=== PATIENT | female | born 1955 | race Caucasian/White ===

== ENCOUNTER 2019-01-17 01:13 | Outpatient (CLI) | payer OTHER, SELFPAY ==
[2019-01-17 07:36] LABS: Absolute Basophil Count 0.06 k/cumm (0.0-0.2); Absolute Eosinophil Count 0.32 k/cumm (0.0-0.7); Absolute Lymphocyte Count 1.66 k/cumm (1.2-3.4); Absolute Monocyte Count 0.42 k/cumm (0.11-0.7); Absolute Neutrophil Count 1.76 k/cumm (1.2-6.7); Basophils % 1.4; Eosinophils % 7.6; HCT 39.5 % (36.0-46.0); Lymphocytes % 39.3; Mean Corp. HGB Concentration 32.9 g/dL (32.0-36.0); Mean Corpuscular Hemoglobin 31.9 pg (27.0-33.0); Mean Corpuscular Volume 97.1 fL (80-95); Mean Platelet Volume 8.8 fL (8.0-11.0); Neutrophils % 41.7; Platelet Count 267 x1000/uL (130-400); RBC 4.07 m/cumm (4.00-5.20); RBC Distribution Width 13.5 % (11.7-14.6); White Blood Cell Count 4.22 k/cumm (4.4-10.8)
[2019-01-17 08:15] LABS: ALT 23 U/L (12-78); AST 22 U/L (15-37); Albumin 3.9 g/dL (3.4-5.0); Alkaline Phosphatase 55 U/L (46-116); Anion Gap 7.1 mmol/L (3-11); BUN 16 mg/dL (7-18); Bilirubin, Direct 0.11 mg/dL (0.00-0.20); Bilirubin, Total 0.4 mg/dL (0.2-1.0); CO2 29.9 mmol/L (21.0-32.0); CREATININE 0.61 mg/dL (0.55-1.02); Calcium 9.4 mg/dL (8.5-10.1); Chloride 104 mmol/L (98-107); Glucose 92 mg/dL (70-100); PHOSPHORUS 4.2 mg/dL (2.6-4.7); Potassium 3.9 mmol/L (3.5-5.1); Sodium 141 mmol/L (136-145); Total Protein 6.7 g/dL (6.4-8.2)
== END 2019-01-17 01:33 ==
PROVIDERS: PCP Family Medicine; Visit Provider Psychiatry & Neurology Neurocritical Care
DX: G70.00 Myasthenia gravis without (acute) exacerbation (principal); D15.0 Benign neoplasm of thymus; Z51.81 Encounter for therapeutic drug level monitoring; Z79.52 Long term (current) use of systemic steroids
CPT/HCPCS: 36415; 80069; 80076; 85025

== ENCOUNTER 2019-02-07 02:34 | Outpatient (CLI) | payer OTHER, SELFPAY ==
[2019-02-07 07:54] LABS: Absolute Basophil Count 0.03 k/cumm (0.0-0.2); Absolute Lymphocyte Count 1.28 k/cumm (1.2-3.4); Absolute Monocyte Count 0.31 k/cumm (0.11-0.7); Absolute Neutrophil Count 2.21 k/cumm (1.2-6.7); Basophils % 0.7; HCT 36.8 % (36.0-46.0); Lymphocytes % 31.8; Mean Corp. HGB Concentration 32.6 g/dL (32.0-36.0); Mean Corpuscular Hemoglobin 32.3 pg (27.0-33.0); Mean Corpuscular Volume 98.9 fL (80-95); Mean Platelet Volume 8.7 fL (8.0-11.0); Monocytes % 7.7; Neutrophils % 54.8; Platelet Count 267 x1000/uL (130-400); RBC 3.72 m/cumm (4.00-5.20); RBC Distribution Width 13.5 % (11.7-14.6); White Blood Cell Count 4.03 k/cumm (4.4-10.8)
[2019-02-07 09:10] LABS: ALT 34 U/L (12-78); AST 35 U/L (15-37); Alkaline Phosphatase 58 U/L (46-116); BUN 17 mg/dL (7-18); Bilirubin, Direct 0.09 mg/dL (0.00-0.20); Bilirubin, Total 0.4 mg/dL (0.2-1.0); CREATININE 0.65 mg/dL (0.55-1.02); Calcium 9.1 mg/dL (8.5-10.1); Chloride 102 mmol/L (98-107); Glucose 87 mg/dL (70-100); PHOSPHORUS 3.9 mg/dL (2.6-4.7); Potassium 3.9 mmol/L (3.5-5.1); Sodium 142 mmol/L (136-145); Total Protein 6.7 g/dL (6.4-8.2)
== END 2019-02-07 02:54 ==
PROVIDERS: PCP Family Medicine; Visit Provider Psychiatry & Neurology Neurocritical Care
DX: D15.0 Benign neoplasm of thymus (principal); G70.00 Myasthenia gravis without (acute) exacerbation; Z79.52 Long term (current) use of systemic steroids; Z51.81 Encounter for therapeutic drug level monitoring
CPT/HCPCS: 36415; 80069; 80076; 85025

== ENCOUNTER 2019-02-20 09:02 | Outpatient (CLI) | payer OTHER, SELFPAY ==
[2019-02-20 14:49] LABS: Mean Corp. HGB Concentration 32.4 g/dL (32.0-36.0); Mean Corpuscular Hemoglobin 32.4 pg (27.0-33.0); Platelet Count 260 x1000/uL (130-400); RBC Distribution Width 14.4 % (11.7-14.6); White Blood Cell Count 4.08 k/cumm (4.4-10.8)
[2019-02-20 16:45] LABS: ALT 44 U/L (12-78); AST 29 U/L (15-37); Albumin 4.2 g/dL (3.4-5.0); Alkaline Phosphatase 67 U/L (46-116); Anion Gap 10.1 mmol/L (3-11); BUN 17 mg/dL (7-18); Bilirubin, Direct 0.12 mg/dL (0.00-0.20); Bilirubin, Total 0.5 mg/dL (0.2-1.0); CO2 25.9 mmol/L (21.0-32.0); CREATININE 0.55 mg/dL (0.55-1.02); Calcium 9.2 mg/dL (8.5-10.1); Chloride 105 mmol/L (98-107); Glucose 109 mg/dL (70-100); PHOSPHORUS 3.9 mg/dL (2.6-4.7); Potassium 4.3 mmol/L (3.5-5.1); Sodium 141 mmol/L (136-145); Total Protein 6.7 g/dL (6.4-8.2)
== END 2019-02-20 09:22 ==
PROVIDERS: PCP Family Medicine; Visit Provider Psychiatry & Neurology Neurocritical Care
DX: G70.00 Myasthenia gravis without (acute) exacerbation (principal); Z79.52 Long term (current) use of systemic steroids; Z51.81 Encounter for therapeutic drug level monitoring; D51.0 Vitamin B12 deficiency anemia due to intrinsic factor deficiency
CPT/HCPCS: 36415; 80069; 80076; 85027

== ENCOUNTER 2019-03-21 02:52 | Outpatient (CLI) | payer OTHER, SELFPAY ==
[2019-03-21 07:57] LABS: Absolute Basophil Count 0.07 k/cumm (0.0-0.2); Absolute Eosinophil Count 0.12 k/cumm (0.0-0.7); Absolute Lymphocyte Count 1.51 k/cumm (1.2-3.4); Absolute Neutrophil Count 1.79 k/cumm (1.2-6.7); Basophils % 1.8; Eosinophils % 3.1; HCT 38.7 % (36.0-46.0); HGB 12.8 g/dL (12.0-15.5); Lymphocytes % 38.8; Mean Corp. HGB Concentration 33.1 g/dL (32.0-36.0); Mean Corpuscular Hemoglobin 33.6 pg (27.0-33.0); Mean Corpuscular Volume 101.6 fL (80-95); Mean Platelet Volume 9.2 fL (8.0-11.0); Monocytes % 10.3; Platelet Count 246 x1000/uL (130-400); RBC 3.81 m/cumm (4.00-5.20); White Blood Cell Count 3.89 k/cumm (4.4-10.8)
[2019-03-21 08:34] LABS: ALT 76 U/L (12-78); AST 64 U/L (15-37); Albumin 4.1 g/dL (3.4-5.0); Alkaline Phosphatase 73 U/L (46-116); Anion Gap 7.6 mmol/L (3-11); BUN 10 mg/dL (7-18); Bilirubin, Direct 0.14 mg/dL (0.00-0.20); Bilirubin, Total 0.7 mg/dL (0.2-1.0); CO2 33.4 mmol/L (21.0-32.0); CREATININE 0.57 mg/dL (0.55-1.02); Calcium 9.3 mg/dL (8.5-10.1); Chloride 104 mmol/L (98-107); Glucose 94 mg/dL (70-100); PHOSPHORUS 3.6 mg/dL (2.6-4.7); Potassium 4.3 mmol/L (3.5-5.1); Sodium 145 mmol/L (136-145); Total Protein 6.8 g/dL (6.4-8.2)
== END 2019-03-21 03:12 ==
PROVIDERS: PCP Family Medicine; Visit Provider Psychiatry & Neurology Neurocritical Care
DX: G70.00 Myasthenia gravis without (acute) exacerbation (principal); D15.0 Benign neoplasm of thymus; Z79.52 Long term (current) use of systemic steroids; Z51.81 Encounter for therapeutic drug level monitoring
CPT/HCPCS: 36415; 80069; 80076; 85025

== ENCOUNTER 2019-04-24 00:58 | Outpatient (CLI) | payer OTHER, SELFPAY ==
[2019-04-24 07:40] LABS: Absolute Basophil Count 0.03 k/cumm (0.0-0.2); Absolute Eosinophil Count 0.18 k/cumm (0.0-0.7); Absolute Lymphocyte Count 1.38 k/cumm (1.2-3.4); Absolute Monocyte Count 0.25 k/cumm (0.11-0.7); Absolute Neutrophil Count 1.94 k/cumm (1.2-6.7); Basophils % 0.8; Eosinophils % 4.8; HCT 37.4 % (36.0-46.0); HGB 12.6 g/dL (12.0-15.5); Lymphocytes % 36.5; Mean Corp. HGB Concentration 33.7 g/dL (32.0-36.0); Mean Corpuscular Hemoglobin 35.1 pg (27.0-33.0); Mean Corpuscular Volume 104.2 fL (80-95); Monocytes % 6.6; Neutrophils % 51.3; Platelet Count 269 x1000/uL (130-400); RBC 3.59 m/cumm (4.00-5.20); RBC Distribution Width 15.6 % (11.7-14.6); White Blood Cell Count 3.78 k/cumm (4.4-10.8)
[2019-04-24 10:37] LABS: ALT 56 U/L (14-59); AST 43 U/L (15-37); Albumin 3.9 g/dL (3.4-5.0); Alkaline Phosphatase 68 U/L (46-116); Anion Gap 9.3 mmol/L (3-11); BUN 13 mg/dL (7-18); Bilirubin, Total 0.6 mg/dL (0.2-1.0); CO2 31.7 mmol/L (21.0-32.0); CREATININE 0.59 mg/dL (0.55-1.02); Calcium 9.2 mg/dL (8.5-10.1); Chloride 106 mmol/L (98-107); Glucose 83 mg/dL (70-100); Potassium 4.1 mmol/L (3.5-5.1); Sodium 147 mmol/L (136-145); Total Protein 6.6 g/dL (6.4-8.2)
[2019-04-24 10:46] LABS: Bilirubin, Direct 0.09 mg/dL (0.00-0.20)
== END 2019-04-24 01:18 ==
PROVIDERS: PCP Family Medicine; Visit Provider Psychiatry & Neurology Neurocritical Care
DX: G70.00 Myasthenia gravis without (acute) exacerbation (principal); D15.0 Benign neoplasm of thymus; Z51.81 Encounter for therapeutic drug level monitoring; Z79.52 Long term (current) use of systemic steroids
CPT/HCPCS: 36415; 80069; 80076; 85025

== ENCOUNTER 2019-07-03 00:08 | Outpatient (CLI) | payer OTHER, SELFPAY ==
[2019-07-03 08:25] LABS: ALT 44 U/L (14-59); AST 32 U/L (15-37); Albumin 4.3 g/dL (3.4-5.0); Alkaline Phosphatase 56 U/L (46-116); BUN 11 mg/dL (7-18); Bilirubin, Direct 0.17 mg/dL (0.00-0.20); Bilirubin, Total 0.7 mg/dL (0.2-1.0); Calcium 9.2 mg/dL (8.5-10.1); Chloride 106 mmol/L (98-107); Glucose 80 mg/dL (70-100); PHOSPHORUS 3.8 mg/dL (2.6-4.7); Sodium 145 mmol/L (136-145); Total Protein 6.9 g/dL (6.4-8.2)
[2019-07-03 17:58] LABS: HCT 37.8 % (36.0-46.0); HGB 12.5 g/dL (12.0-15.5); Mean Corp. HGB Concentration 33.1 g/dL (32.0-36.0); Mean Corpuscular Hemoglobin 36.3 pg (27.0-33.0); Mean Corpuscular Volume 109.9 fL (80-95); Mean Platelet Volume 9.1 fL (8.0-11.0); Platelet Count 307 x1000/uL (130-400); RBC 3.44 m/cumm (4.00-5.20); RBC Distribution Width 15.6 % (11.7-14.6); White Blood Cell Count 4.76 k/cumm (4.4-10.8)
== END 2019-07-03 00:28 ==
PROVIDERS: PCP Family Medicine; Visit Provider Psychiatry & Neurology Neurocritical Care
DX: G70.00 Myasthenia gravis without (acute) exacerbation (principal); D15.0 Benign neoplasm of thymus; Z79.52 Long term (current) use of systemic steroids; Z51.81 Encounter for therapeutic drug level monitoring
CPT/HCPCS: 36415; 80069; 80076; 85027

== ENCOUNTER 2019-08-01 01:29 | Outpatient (CLI) | payer OTHER, SELFPAY ==
[2019-08-01 10:44] LABS: Absolute Basophil Count 0.03 k/cumm (0.0-0.2); Absolute Eosinophil Count 0.06 k/cumm (0.0-0.7); Absolute Lymphocyte Count 0.58 k/cumm (1.2-3.4); Absolute Monocyte Count 0.17 k/cumm (0.11-0.7); Absolute Neutrophil Count 3.49 k/cumm (1.2-6.7); Basophils % 0.7; Eosinophils % 1.4; HCT 36.9 % (36.0-46.0); HGB 12.3 g/dL (12.0-15.5); Lymphocytes % 13.4; Mean Corp. HGB Concentration 33.3 g/dL (32.0-36.0); Mean Corpuscular Hemoglobin 36.1 pg (27.0-33.0); Mean Corpuscular Volume 108.2 fL (80-95); Mean Platelet Volume 8.8 fL (8.0-11.0); Monocytes % 3.9; Neutrophils % 80.6; Platelet Count 235 x1000/uL (130-400); RBC 3.41 m/cumm (4.00-5.20); RBC Distribution Width 14.5 % (11.7-14.6); White Blood Cell Count 4.33 k/cumm (4.4-10.8)
[2019-08-01 11:32] LABS: ALT 53 U/L (14-59); AST 45 U/L (15-37); Albumin 4.3 g/dL (3.4-5.0); Alkaline Phosphatase 59 U/L (46-116); Anion Gap 7.1 mmol/L (3-11); BUN 14 mg/dL (7-18); Bilirubin, Direct 0.17 mg/dL (0.00-0.20); Bilirubin, Total 0.8 mg/dL (0.2-1.0); CO2 30.9 mmol/L (21.0-32.0); CREATININE 0.62 mg/dL (0.55-1.02); Calcium 9.2 mg/dL (8.5-10.1); Chloride 106 mmol/L (98-107); Glucose 105 mg/dL (74-106); PHOSPHORUS 3.3 mg/dL (2.6-4.7); Potassium 3.9 mmol/L (3.5-5.1); Sodium 144 mmol/L (136-145); Total Protein 6.8 g/dL (6.4-8.2)
[2019-08-01 11:48] LABS: Diff Comment RBC Morph Reviewed; Macrocytosis 3+
== END 2019-08-01 01:49 ==
PROVIDERS: PCP Family Medicine; Visit Provider Psychiatry & Neurology Neurocritical Care
DX: G70.00 Myasthenia gravis without (acute) exacerbation (principal); D15.0 Benign neoplasm of thymus; Z51.81 Encounter for therapeutic drug level monitoring; Z79.52 Long term (current) use of systemic steroids
CPT/HCPCS: 36415; 80069; 80076; 85025

== ENCOUNTER 2021-05-19 09:58 | Outpatient (CLI) | payer OTHER, SELFPAY ==
[2021-05-19 15:50] LABS: HCT 38.6 % (36.0-46.0); HGB 12.7 g/dL (11.2-15.7); MCH 33.1 pg (27.0-33.0); MCHC 32.9 % (32.0-36.0); MCV 100.5 fL (80-95); MPV 8.8 fL (8.0-11.0); Platelet Count 236 10^3/uL (130-400); RBC 3.84 10^6/uL (3.93-5.22); RDW 13.3 % (11.7-14.6); RDW-SD 49.2 fL; WBC 8.52 10^3/uL (4.4-10.8)
[2021-05-19 17:25] LABS: TSH (W/Ref FT4) 0.24 uIU/mL (0.36-3.74)
[2021-05-19 17:54] LABS: FREE T4 0.71 ng/dL (0.76-1.46)
[2021-05-19 18:40] LABS: Ferritin 95 ng/mL (8-252)
== END 2021-05-19 09:59 | disposition home or self-care (01) ==
LOC: LBO 10:04
PROVIDERS: PCP Family Medicine; Visit Provider Family Medicine
DX: R10.13 Epigastric pain (principal); K92.1 Melena; R45.0 Nervousness
CPT/HCPCS: 36415; 85027; 82728; 84439; 84443

== ENCOUNTER 2021-06-06 01:41 | Outpatient (CLI) | payer OTHER, SELFPAY ==
[2021-06-06 16:08] LABS: HCT 39.8 % (36.0-46.0); MCH 33.2 pg (27.0-33.0); MCHC 32.7 % (32.0-36.0); MCV 101.8 fL (80-95); MPV 8.9 fL (8.0-11.0); Platelet Count 227 10^3/uL (130-400); RBC 3.91 10^6/uL (3.93-5.22); RDW 13.1 % (11.7-14.6); RDW-SD 49.1 fL; WBC 6.38 10^3/uL (4.4-10.8)
[2021-06-06 17:05] LABS: FREE T4 0.78 ng/dL (0.76-1.46); TSH (W/Ref FT4) 0.42 uIU/mL (0.36-3.74)
[2021-06-06 17:34] LABS: Ferritin 61 ng/mL (8-252)
[2021-06-06 22:01] LABS: T3, Total 102 ng/dL (97-169)
[2021-06-07 14:39] LABS: Thyroglobulin Antibody 17 U/mL (<=60); Thyroperoxidase Antibody <28 U/mL (<=60)
== END 2021-06-06 01:42 | disposition home or self-care (01) ==
LOC: LBO 01:41
PROVIDERS: PCP Family Medicine; Visit Provider Family Medicine
DX: R94.6 Abnormal results of thyroid function studies (principal); K92.1 Melena
CPT/HCPCS: 36415; 85027; 82728; 84439; 84443; 84480; 86376; 86800

== ENCOUNTER 2021-08-12 02:26 | Outpatient (RCR) | payer MEDICARE, OTHER, SELFPAY ==
[2021-08-08 09:02] VITALS: BP 173/100; PULSE 97; RESP 20; TEMP 36.9; O2SAT 99
[2021-08-08] MEDS: Normal Saline Flush 10 ML SYR IVP (09:07)
[2021-08-08 09:10] VITALS: BP 149/87; PULSE 88; RESP 20; TEMP 36.9; O2SAT 99
[2021-08-08] MEDS: IMMUNE GLOBULIN 5 GM/50 ML BTL IV (09:10)
[2021-08-08 09:13] LABS: HCT 41.1 % (36.0-46.0); HGB 13.9 g/dL (11.2-15.7); MCH 33.2 pg (27.0-33.0); MCHC 33.8 % (32.0-36.0); MCV 98.1 fL (80-95); MPV 8.9 fL (8.0-11.0); Platelet Count 259 10^3/uL (130-400); RBC 4.19 10^6/uL (3.93-5.22); RDW 12.1 % (11.7-14.6); RDW-SD 43.8 fL; WBC 4.73 10^3/uL (4.4-10.8)
[2021-08-08 09:24] LABS: BUN 11 mg/dL (7-18); CREATININE 0.6 mg/dL (0.55-1.02)
[2021-08-08 09:30] VITALS: BP 151/88; PULSE 88; RESP 16; TEMP 36.8; O2SAT 99
[2021-08-08] MEDS: IMMUNE GLOBULIN 20 GM/200 ML BTL IV (09:49)
[2021-08-08 09:58] VITALS: BP 146/90; PULSE 92; RESP 20; TEMP 36.8; O2SAT 99
[2021-08-08 10:26] VITALS: BP 145/87; PULSE 84; RESP 16; TEMP 36.5; O2SAT 97
[2021-08-08 10:55] VITALS: BP 146/90; PULSE 83; RESP 16; TEMP 36.2; O2SAT 97
[2021-08-09] MEDS: Acetaminophen 500 MG TAB PO (09:00)
[2021-08-09] MEDS: IMMUNE GLOBULIN 5 GM/50 ML BTL IV (09:02)
[2021-08-09 09:05] VITALS: BP 160/85; PULSE 85; RESP 17; TEMP 36.6; O2SAT 98
[2021-08-09] MEDS: Normal Saline Flush 10 ML SYR IVP (09:14)
[2021-08-09 09:28] VITALS: BP 148/88; PULSE 87; RESP 17; TEMP 36.6; O2SAT 98
[2021-08-09 09:44] VITALS: BP 142/87; PULSE 83; RESP 17; TEMP 36.8; O2SAT 98
[2021-08-09] MEDS: IMMUNE GLOBULIN 20 GM/200 ML BTL IV (10:00)
[2021-08-09 10:15] VITALS: BP 154/88; PULSE 88; RESP 18; TEMP 36.7; O2SAT 98
[2021-08-09 10:45] VITALS: BP 151/92; PULSE 82; RESP 17; TEMP 36.5; O2SAT 98
[2021-08-10 09:10] VITALS: BP 153/93; PULSE 87; RESP 16; TEMP 36.6; O2SAT 97
[2021-08-10] MEDS: Acetaminophen 500 MG TAB PO (09:13)
[2021-08-10] MEDS: IMMUNE GLOBULIN 5 GM/50 ML BTL IV (09:14)
[2021-08-10] MEDS: Normal Saline Flush 10 ML SYR IVP (09:20)
[2021-08-10 09:24] LABS: HCT 38.3 % (36.0-46.0); HGB 12.5 g/dL (11.2-15.7); MCH 31.6 pg (27.0-33.0); MCHC 32.6 % (32.0-36.0); MPV 8.7 fL (8.0-11.0); Platelet Count 210 10^3/uL (130-400); RBC 3.95 10^6/uL (3.93-5.22); RDW 11.9 % (11.7-14.6); RDW-SD 42.8 fL; WBC 2.28 10^3/uL (4.4-10.8)
[2021-08-10 09:33] VITALS: BP 145/88; PULSE 80; RESP 16; TEMP 36.7; O2SAT 97
[2021-08-10 09:34] LABS: BUN 10 mg/dL (7-18); CREATININE 0.7 mg/dL (0.55-1.02)
[2021-08-10 09:47] VITALS: BP 133/80; PULSE 77; RESP 17; TEMP 36.8; O2SAT 97
[2021-08-10] MEDS: IMMUNE GLOBULIN 20 GM/200 ML BTL IV (09:56)
[2021-08-10 10:20] VITALS: BP 129/78; PULSE 83; RESP 17; TEMP 36.6; O2SAT 97
[2021-08-10 10:50] VITALS: BP 135/82; PULSE 83; RESP 17; TEMP 36.6; O2SAT 98
[2021-08-10] MEDS: Normal Saline 1,000 ML 999 ML IV (11:20)
[2021-08-11] MEDS: Ketorolac 15 MG/ML VIAL IV (09:01)
[2021-08-11] MEDS: Acetaminophen 500 MG TAB PO (09:01)
[2021-08-11] MEDS: IMMUNE GLOBULIN 5 GM/50 ML BTL IV (09:02)
[2021-08-11 09:10] VITALS: BP 163/95; PULSE 84; RESP 17; TEMP 36.5; O2SAT 98
[2021-08-11 09:27] VITALS: BP 129/77; PULSE 81; RESP 16; TEMP 36.6; O2SAT 98
[2021-08-11 09:40] VITALS: BP 132/78; PULSE 84; RESP 17; TEMP 36.4; O2SAT 98
[2021-08-11] MEDS: IMMUNE GLOBULIN 20 GM/200 ML BTL IV (09:44)
[2021-08-11 10:14] VITALS: BP 128/79; PULSE 73; RESP 17; TEMP 36.3; O2SAT 99
[2021-08-11 10:45] VITALS: BP 132/80; PULSE 73; RESP 16; TEMP 36.3; O2SAT 98
[2021-08-11] MEDS: Normal Saline 1,000 ML 999 ML IV (11:11)
[2021-08-12] MEDS: Acetaminophen 500 MG TAB PO (08:57)
[2021-08-12] MEDS: Normal Saline Flush 10 ML SYR IVP (08:57)
[2021-08-12 09:00] VITALS: BP 166/92; PULSE 81; RESP 16; TEMP 36.3; O2SAT 100
[2021-08-12] MEDS: Ketorolac 15 MG/ML VIAL IV (09:01)
[2021-08-12] MEDS: IMMUNE GLOBULIN 5 GM/50 ML BTL IV (09:05)
[2021-08-12 09:20] VITALS: BP 153/92; PULSE 77; RESP 17; TEMP 36.4; O2SAT 98
[2021-08-12 09:35] VITALS: BP 151/88; PULSE 75; RESP 16; TEMP 36.4; O2SAT 99
[2021-08-12] MEDS: IMMUNE GLOBULIN 20 GM/200 ML BTL IV (09:48)
[2021-08-12 10:09] VITALS: BP 158/85; PULSE 74; RESP 17; TEMP 36.5; O2SAT 99
[2021-08-12 10:39] VITALS: BP 168/92; PULSE 75; RESP 17; TEMP 36.5; O2SAT 97
[2021-08-12] MEDS: Normal Saline 1,000 ML 999 ML IV (11:07)
== END 2021-08-26 23:59 | disposition home or self-care (01) ==
LOC: INF 02:26
PROVIDERS: Psychiatry & Neurology Neurocritical Care; PCP Family Medicine; Visit Provider Internal Medicine
DX: G70.01 Myasthenia gravis with (acute) exacerbation (principal)
CPT/HCPCS: 36415; 84520; 85027; 96360; 96361; 96365; 96366; 96374; 96375; 82565; J1459; J1885

== ENCOUNTER 2021-09-20 03:44 | Outpatient (RCR) | payer MEDICARE, OTHER, SELFPAY ==
[2021-08-27 00:01] VITALS: BP 168/92; PULSE 75; RESP 17; TEMP 36.5
[2021-09-09] MEDS: Acetaminophen 500 MG TAB PO (08:59)
[2021-09-09] MEDS: Ketorolac 15 MG/ML VIAL IV (09:00)
[2021-09-09] MEDS: Normal Saline Flush 10 ML SYR IVP (09:00)
[2021-09-09 09:10] VITALS: BP 144/89; PULSE 82; RESP 20; TEMP 36.8; O2SAT 99
[2021-09-09] MEDS: IMMUNE GLOBULIN 5 GM/50 ML BTL IVPB (09:13)
[2021-09-09 09:35] VITALS: BP 124/80; PULSE 73; RESP 16; TEMP 36.9; O2SAT 98
[2021-09-09 09:50] VITALS: BP 138/81; PULSE 77; RESP 16; TEMP 37; O2SAT 97
[2021-09-09] MEDS: IMMUNE GLOBULIN 40 GM/400 ML BTL IVPB (09:50)
[2021-09-09 10:20] VITALS: BP 134/86; PULSE 82; RESP 16; TEMP 37; O2SAT 98
[2021-09-09 12:25] VITALS: BP 146/88; PULSE 82; RESP 16; TEMP 36.7; O2SAT 100
[2021-09-09] MEDS: Normal Saline 1,000 ML 1000 ML IV (12:27)
[2021-09-13 07:55] VITALS: BP 148/83; PULSE 80; RESP 17; TEMP 36.4; O2SAT 98
[2021-09-13] MEDS: Normal Saline Flush 10 ML SYR IVP (08:45)
[2021-09-13 08:57] VITALS: BP 147/88; PULSE 80; RESP 17; TEMP 36.7; O2SAT 97
[2021-09-13 09:20] VITALS: BP 139/87; PULSE 70; RESP 17; TEMP 36.7; O2SAT 98
[2021-09-13 10:20] VITALS: BP 149/94; PULSE 83; RESP 17; TEMP 36.7; O2SAT 99
[2021-09-20] MEDS: Normal Saline Flush 10 ML SYR IVP (09:43)
== END 2021-09-26 23:59 | disposition home or self-care (01) ==
LOC: INF 03:44
PROVIDERS: PCP Family Medicine; Visit Provider Internal Medicine
DX: G70.01 Myasthenia gravis with (acute) exacerbation (principal)
CPT/HCPCS: 96360; 96361; 96365; 96366; 96367; 96375; J1300; J1459; J1885

== ENCOUNTER 2021-10-04 01:42 | Outpatient (RCR) | payer MEDICARE, OTHER, SELFPAY ==
[2021-09-27 00:03] VITALS: BP 149/94; PULSE 83; RESP 17; TEMP 36.7
[2021-09-27] MEDS: Normal Saline Flush 10 ML SYR IVP (08:53)
[2021-10-04] MEDS: Normal Saline Flush 10 ML SYR IVP (08:39)
== END 2021-10-24 23:59 | disposition home or self-care (01) ==
LOC: INF 01:42
PROVIDERS: PCP Family Medicine; Visit Provider Internal Medicine
DX: G70.00 Myasthenia gravis without (acute) exacerbation (principal)
CPT/HCPCS: 96365; J1300

== ENCOUNTER 2021-10-24 21:04 | Emergency (ER) | payer MEDICARE, OTHER, SELFPAY ==
[2021-10-24 21:10] VITALS: BP 202/124; PULSE 90; RESP 16; TEMP 36.4; O2SAT 100
--- NOTE | 2021-10-24 21:42 | ED.GENADUL_ITS ---
Discharge Plan Disposition Patient Disposition: HOME Condition: Stable Discharge Details Clinical Impression: Back pain, Sciatica Primary Care Provider: Katerine Quintanilla ED Provider: Judith Rhodes Home Meds and New Rx's Prescriptions: New cyclobenzaprine 10 mg tablet 10 mg PO TID PRN (Reason: muscle spasm) Qty: 14 0RF Continued cyclobenzaprine 10 MG tablet 10 mg PO TID PRN0RF ibuprofen 200 MG capsule 400 mg PO PRN PRN0RF diclofenac sodium 50 MG tablet,delayed release (DR/EC) 50 mg PO BID 0RF Vitamin D3 Complete 1 EACH tablet 1 tab PO BID 0RF omeprazole 40 mg capsule,delayed release(DR/EC) 40 mg PO DAILY 0RF sertraline 25 mg tablet 25 mg PO DAILY 0RF Label Comments: TAKE 1 TABLET BY MOUTH EVERY DAY Soliris 300 mg/30 mL Solution 600 mg IV QWEEK 0RF Rx Instructions: administer wks 1-4 of therapy; over 35 min Discharge Instructions Instructions: Cyclobenzaprine (By mouth), Sciatica (ED), Back Pain (ED) Additional Instructions: Your history and exam are most concerning for left-sided sciatica. Please apply heat and/or ice to help with discomfort. Gentle stretching. Frequent ambulation. Please continue with Tylenol and ibuprofen as needed for discomfort, take as directed on the packaging. You may augment this with the Flexeril as prescribed to help with any muscle spasm. You may take 10 mg 3 times a day to help with spasm. Please not drive will take this medication as it can be sedating. Encourage hydration. Please follow-up with your primary care in the next 1 to 2 weeks for reevaluation. If you develop increased pain, sensation changes, change in bowel or bladder habits, weakness or other new/worsening symptoms care urgently once again. Referrals: Katerine Quintanilla MD [Primary Care Provider] - Medical Decision Making Patient is a pleasant 56-year-old female presents today with chief complaint of left sided buttock and hip pain. She reports the pain initially began approximately 1 month ago. Patient recently traveled to [place].. She states that pain did progressively increased while on the trip and seems to be made worse after a mile walk. She reports that she has had similar pain historically but was noted in the contralateral side. Previous diagnosis of sciatica. Patient did undergo surgery to the lumbar spine to fix the right-sided radiculopathy. She reported the symptoms feels the same. She denies any recent trauma. No fevers or chills. Denies any change in bowel or bladder habits. Denies any sensory deficits. No weakness. Patient is just off the plan and states that being sedentary for so long greatly increase her symptoms and that does seem to improve with ambulation. On exam, patient appears nontoxic. She is tender under the left gluteal fold extending down the posterior aspect of the thigh in the upper one half of the thighs. She has 5-5 strength with dorsiflexion and plantarflexion of the foot with great toe. 2+ distal pulses. She has full range of motion of the hip but does have discomfort with full flexion in the posterior aspect. No midline lumbar spinal pain. She is tender near the left SI joint. No rashes appreciated. No saddle paresthesias. No tenderness elicited with palpation over the greater trochanter or with axial loading of the hip. Patient denies any shortness of breath or chest pain. Patient and I discussed treatment options. She has done well with Flexeril in the past when she had sciatica on the contralateral side. That is certainly with the exam is presenting as today. She has no calf tenderness, swelling, edema. She is intact distal pulses, no color change or palpable cord. The pain began prior to her trip, her history exam is not distant with a DVT at this time. We will give Tylenol, ibuprofen, Lidoderm patch and Flexeril. She would prefer to take medication be able to go home as she is scheduled to come back tomorrow morning for an infusion. Patient does have a history of myasthenia gravis. She has done well with Flexeril historically, we will send her home with some of the same this evening. Patient requesting discharge home. I do feel that this is appropriate, particularly as patient has had similar pain historically and notes this worked well for her. We are not waiting until we see the effect of the medication rather, patient will return if she develops any new or worsening symptoms. Strict return precautions were discussed. I did offer referral to physical therapy and she would prefer to hold off until after she is seen by her primary care provider. Strict return precautions were discussed. All the questions or concerns were addressed and she is in agreement this plan. BP at the time of discharge 164/118, she will discuss further with PCP. She is aware of her elevated BP, tracks this at home and believes it is elevated d/t discomfort. HPI General Mode of arrival: ambulatory . Date/Time Provider Initiated Documentation: 10/24/21 21:09 . Limitations to Documentation: no limitations . Information obtained by: patient and RN notes reviewed . History of Present Illness 66 year old F presents to the emergency department with the chief complaint of left sided hip/buttock pain, described as severe and similar to prior episodes (has had same pain on the contralateral side), with intensity rated at 10. Quality is described as aching, and is localized to the left and lower extremity. Patient extremity (down posterior thigh). Patient started experiencing this month(s) and it has been constant. improves with Movement improves symptom(s), Immoblization worsens symptoms . Patient notes no other symptoms.. Patient did receive the following treatments prior to arrival, none Related Data Home Medications Medication Instructions Recorded Confirmed cyclobenzaprine 10 mg tablet 10 mg PO TID PRN 11/11/14 10/24/21 diclofenac sodium 50 mg 50 mg PO BID 11/11/14 10/24/21 tablet,delayed release ibuprofen 200 mg capsule 400 mg PO PRN PRN 11/11/14 10/24/21 multivit with 1 tab PO BID 11/11/14 10/24/21 [id number] 18 mg iron-800 mcg-150 mg tablet (Vitamin D3 Complete) cyclobenzaprine 10 mg tablet 10 mg PO TID PRN #14 tab 10/24/21 eculizumab 300 mg/30 mL 600 mg IV QWEEK 10/24/21 10/24/21 intravenous solution (Soliris) omeprazole 40 mg capsule,delayed 40 mg PO DAILY 10/24/21 10/24/21 release sertraline 25 mg tablet 25 mg PO DAILY 10/24/21 10/24/21 Previous Rx's Medication Instructions Recorded cyclobenzaprine 10 mg tablet 10 mg PO TID PRN #14 tab 10/24/21 Allergies Allergy/AdvReac Type Severity Reaction Status Date / Time Penicillins Allergy Intermediate Itching, Unverified 11/11/14 07:24 rash General Stated Complaint: Nk/Back Pain CARMENCITA: 3 Review of Systems Constitutional Constitutional: Reports as per HPI, Denies chills, Denies fatigue, Denies fever(s) and Denies frequent falls Cardiovascular Cardiovascular: Denies chest pain, Denies dyspnea and Denies dyspnea on exertion Respiratory Respiratory: Denies cough, Denies dyspnea and Denies dyspnea on exertion Gastrointestinal Gastrointestinal: Denies abdominal pain, Denies change in bowel habits and Denies fecal incontinence Genitourinary Genitourinary: Reports as per HPI, Denies urinary incontinence and Denies urinary hesitancy Musculoskeletal Musculoskeletal: Reports as per HPI, Reports back pain, Denies muscle weakness, Denies numbness, Denies radiating pain into limb, Reports stiffness and Denies tingling Integumentary/Breasts Skin/Breast: Reports as per HPI and Denies rash Neurologic Neurologic: Reports as per HPI, Denies frequent falls, Denies localized weakness, Denies numbness, Reports radicular pain, Denies sensory deficit, Denies tingling and Denies paresthesias Endocrine Endocrine: Denies fatigue PFSH All Active Problems (Updated 10/24/21 @ 22:14 by EDWIN Krause) Lumbosacral spondylosis without myelopathy (Acute) Back pain (Acute) Sciatica (Acute) Medical History (Updated 10/24/21 @ 22:14 by EDWIN Krause) Myasthenia gravis Social History Smoking/Tobacco Use Status: Former Tobacco Use Smoking risk assessment performed?: Yes Alcohol Intake: never Drug use: Never Substance use type: does not use Do you feel safe at home: Yes Do you feel safe in your relationship?: Yes Exam Const General: cooperative, healthy appearing, uncomfortable, no acute distress, well developed and well groomed Nutritional Appearance: average body habitus and well nourished Orientation: alert and awake Eyes General: appearance normal, both eyes and all related structures Neck Neck: normal visual inspection, full ROM, no lymphadenopathy and no meningeal signs Resp Effort & Inspection: normal respiratory effort and able to speak in complete sentences Auscultation: clear to auscultation bilaterally, no rales, no rhonchi and no wheezes Cardio Rate: regular rate Rhythm: regular rhythm Heart Sounds: S1 normal and S2 normal Back/Spine/Pelvis Back: no CVA tenderness Cervical Spine: normal cervical lordosis, cervical ROM normal, No cervical spinal tenderness and No step off deformity Thoracic/Lumbar Spine: thoracic and lumbar spine normal to inspection, bend over test abnormal, No paraspinal tenderness, thoraco-lumbar ROM limited (limited with forward flexion, otherwise no limitations), No thoraco-lumbar spasm, No thoracic spinal tenderness, No lumbar spinal tenderness and straight leg raise positive (on left side) Pelvis: no pain with anterior-posterior compression and no pain with lateral compression Sacroiliac joints: on the left tender to palpation Sacrum: no ecchymosis, no swelling and no tenderness Coccyx: no swelling and no tenderness Skin General skin exam: no rashes or lesions noted Neuro General: patient alert and patient awake Cognition: normal cognition Speech: speech normal Gait: antalgic Motor: muscle tone normal throughout, strength 5/5 throughout, no movement abnormalities noted and no fasciculations Sensory Exam: no sensory deficits noted (no saddle paresthesias) DTR's: Rt Patellar: 2+, Lt Patellar: 2+, Rt Ankle: 2+ and Lt Ankle: 2+ Extrem General: normal to inspection, full ROM, capillary refill normal, no joint enlargement, no pedal edema, no calf tenderness and abnormal gait Left lower extremity: normal to inspection, full ROM, normal capillary refill and no joint enlargement Psych Appearance: grossly normal and well kempt Mental Status: mental status grossly normal Speech and Movement: speech and movement normal Course Vital Signs Vital signs: Vital Signs Temperature 36.4 C L 10/24/21 21:10 Pulse 90 10/24/21 21:10 Respiratory Rate 16 10/24/21 21:10 Blood Pressure 202/124 H 10/24/21 21:10 Pulse Oximetry 100 10/24/21 21:10 Temperature 36.4 C L 10/24/21 21:10 Temperature Source Skin 10/24/21 21:10 Pulse 90 10/24/21 21:10 Respiratory Rate 16 10/24/21 21:10 Respiratory Effort Non-Labored 10/24/21 21:16 Blood Pressure 202/124 H 10/24/21 21:10 Pulse Oximetry 100 10/24/21 21:10 Oxygen Delivery Method Room Air 10/24/21 21:10 Oxygen Flow Rate 0 10/24/21 21:10 Pain Level 10 10/24/21 21:10
[2021-10-24] MEDS: Acetaminophen 500 MG TAB 1000 MG PO (22:22)
[2021-10-24] MEDS: Cyclobenzaprine 10 MG TAB PO (22:23)
[2021-10-24] MEDS: Ibuprofen 600 MG TAB PO (22:23)
[2021-10-24 22:29] VITALS: BP 164/118
[2021-10-24] MEDS: Lidocaine 5% Patch 1 PATCH TP (22:29)
[2021-10-24] MEDS: Cyclobenzaprine 10 MG TAB, 3 TABS/BTL PO (22:29)
== END 2021-10-24 22:34 | disposition home or self-care (01) ==
PROVIDERS: Emergency Provider Physician Assistant; PCP Family Medicine
DX: M54.9 Dorsalgia, unspecified (principal); M54.32 Sciatica, left side; M25.552 Pain in left hip
CPT/HCPCS: 99283

== ENCOUNTER 2021-10-30 14:42 | Emergency (ER) | payer MEDICARE, OTHER, SELFPAY ==
[2021-10-30 14:48] VITALS: BP 162/93; PULSE 127; RESP 16; TEMP 36.7; O2SAT 99
--- NOTE | 2021-10-30 16:47 | ED.GENADUL_ITS ---
Discharge Plan Disposition Patient Disposition: HOME Condition: Stable Discharge Details Clinical Impression: Sciatica Primary Care Provider: Katerine Quintanilla ED Provider: Lashanda Tovar Home Meds and New Rx's Prescriptions: New methocarbamol 500 mg tablet 500 mg PO Q6H PRN (Reason: muscle spasm) Qty: 14 0RF Continued ibuprofen 200 MG capsule 400 mg PO PRN PRN0RF diclofenac sodium 50 MG tablet,delayed release (DR/EC) 50 mg PO BID 0RF Vitamin D3 Complete 1 EACH tablet 1 tab PO BID 0RF prednisone 20 mg tablet 40 mg PO DAILY 0RF Label Comments: TAKE 2 TABLETS BY MOUTH EVERY DAY FOR 5 DAYS THEN TAKE 1 TABLET BY MOUTH EVERY DAY FOR 5 TO 10 DAYS gabapentin 100 mg capsule 200 mg PO TID 0RF Label Comments: TAKE 1 TO 2 CAPSULES BY MOUTH THREE TIMES DAILY omeprazole 40 mg capsule,delayed release(DR/EC) 40 mg PO DAILY 0RF sertraline 25 mg tablet 25 mg PO DAILY 0RF Label Comments: TAKE 1 TABLET BY MOUTH EVERY DAY Soliris 300 mg/30 mL Solution 600 mg IV QWEEK 0RF Rx Instructions: administer wks 1-4 of therapy; over 35 min cyclobenzaprine 10 mg tablet 10 mg PO TID PRN (Reason: muscle spasm) Qty: 14 0RF Discontinued cyclobenzaprine 10 MG tablet 10 mg PO TID PRN0RF Discharge Instructions Instructions: Sciatica (ED) Additional Instructions: Alternate ice and heat to the affected area(s) several times daily for 20 minutes at a time. Alternate tylenol and motrin as needed and directed for pain. You are being sent home with 2 doses of 60 mg of prednisone to take once daily for the next 2 days. Then resume taking your steroid prescription on Sunday until finished. Take the methocarbamol muscle relaxer as needed and directed. Take the oxycodone for pain not relieved with Tylenol, ibuprofen or muscle relaxer. Call your primary care doctor's office tomorrow to schedule follow-up appointment for reevaluation and to confirm an order for a lumbar spine MRI has been placed and to schedule this test as soon as possible. Return immediately to the emergency department if you develop any worsening or new concerning symptoms. Discharge Data Discharge Date/Time-TO BE ENTERED AT DEPARTURE: 10/30/21 17:36 Discharge Physician: Lashanda Tovar Medical Decision Making 66-year-old female with a history of lumbar facetectomy and foramenectomy in 2013 with history of sciatica presents with left back/buttock/leg pain for the past few weeks, getting progressively worse. Blood pressure and heart rate elevated, may be secondary to pain. She appears uncomfortable but nontoxic. She has pain which appears to be occurring in spasms occurring in her left lower back and buttock with radiation down the back of her leg with tingling. She has no focal deficits. As she has no focal deficits or cauda equina symptoms, do not see an indication for transfer for emergent MRI. As she denies any report of injury and there is no evidence of trauma, do not see indication for x-ray or CT imaging as she is agreeable. She took 40 mg of her steroids today prescribed by her PCP. Will give additional 20 mg prednisone now in addition to 2 days of 60 mg prednisone and then to resume and finish her steroid prescription. Also give a dose of IM Toradol, p.o. Valium and p.o. oxycodone. We will send with prescriptions for methocarbamol and give 2 days of 60 mg prednisone and a 4 tab bottle of oxycodone. She is advised to call her PCP tomorrow to schedule the MRI as soon as possible and return here immediately if she develops any sudden worsening or new concerning symptoms. Medical Records Medical records reviewed: Yes I reviewed the patient's medical records. HPI General Mode of arrival: ambulatory . Date/Time Provider Initiated Documentation: 10/30/21 14:49 . Limitations to Documentation: no limitations . Information obtained by: patient . HPI Narrative: Patient is a 66-year-old female with a history of sciatica, lumbar facetectomy foraminectomy 2013 presents with left-sided lower back/buttocks and left leg pain with tingling in the left leg and toes for the past few weeks, getting progressively worse. Patient was seen here 1 week ago with the same complaint and given Flexeril. She was advised Tylenol, ibuprofen, Flexeril and that is her past without relief. She states to follow-up with her primary care doctor and was told she may have sciatica and was referred for outpatient lumbar spine MRI which has not yet been scheduled. She is here today because her pain is getting progressively worse and she is having difficulty walking, bending and standing. She denies any fever, nausea, vomiting, abdominal pain, urinary symptoms, bowel or bladder incontinence. Related Data Home Medications Medication Instructions Recorded Confirmed diclofenac sodium 50 mg 50 mg PO BID 11/11/14 10/30/21 tablet,delayed release ibuprofen 200 mg capsule 400 mg PO PRN PRN 11/11/14 10/30/21 multivit with 1 tab PO BID 11/11/14 10/30/21 [id number] 18 mg iron-800 mcg-150 mg tablet (Vitamin D3 Complete) cyclobenzaprine 10 mg tablet 10 mg PO TID PRN #14 tab 10/24/21 10/30/21 eculizumab 300 mg/30 mL 600 mg IV QWEEK 10/24/21 10/30/21 intravenous solution (Soliris) omeprazole 40 mg capsule,delayed 40 mg PO DAILY 10/24/21 10/30/21 release sertraline 25 mg tablet 25 mg PO DAILY 10/24/21 10/30/21 gabapentin 100 mg capsule 200 mg PO TID 10/30/21 10/30/21 methocarbamol 500 mg tablet 500 mg PO Q6H PRN #14 tab 10/30/21 prednisone 20 mg tablet 40 mg PO DAILY 10/30/21 10/30/21 Previous Rx's Medication Instructions Recorded cyclobenzaprine 10 mg tablet 10 mg PO TID PRN #14 tab 10/24/21 methocarbamol 500 mg tablet 500 mg PO Q6H PRN #14 tab 10/30/21 Allergies Allergy/AdvReac Type Severity Reaction Status Date / Time Penicillins Allergy Intermediate Itching, Unverified 10/30/21 14:54 rash General Stated Complaint: Orthopedic CARMENCITA: 4 Review of Systems All systems reviewed & are unremarkable except as noted in HPI and below Constitutional Constitutional: Reports as per HPI, Denies chills and Denies fever(s) Eyes Eyes: Denies blurry vision ENT Ears, Nose, Mouth, and Throat: Denies dizziness, Denies sore throat and Denies throat swelling Cardiovascular Cardiovascular: Denies chest pain and Denies dyspnea Respiratory Respiratory: Denies cough and Denies dyspnea Gastrointestinal Gastrointestinal: Denies abdominal pain, Denies diarrhea and Denies vomiting Genitourinary Genitourinary: Denies hematuria and Denies dysuria Musculoskeletal Musculoskeletal: Reports back pain, Denies numbness, Reports tingling and Reports other (L leg pain) Integumentary/Breasts Skin/Breast: Denies lesions and Denies rash Neurologic Neurologic: Denies dizziness, Denies localized weakness, Denies numbness and Reports tingling Allergic/Immunologic Allergic/Immunologic: Denies throat swelling PFSH All Active Problems (Updated 10/30/21 @ 16:54 by Lashanda Tovar DO) Lumbosacral spondylosis without myelopathy (Acute) Back pain (Acute) Sciatica (Acute) Sciatica (Acute) Medical History (Updated 10/30/21 @ 16:54 by Lashanda Tovar DO) Myasthenia gravis Social History Smoking/Tobacco Use Status: Former Tobacco Use Smoking risk assessment performed?: Yes Alcohol Intake: never Drug use: Never Substance use type: does not use Do you feel safe at home: Yes Do you feel safe in your relationship?: Yes Exam Const General: cooperative, healthy appearing and no acute distress Orientation: alert, awake and oriented x3 HENMT Head: normal to inspection Mouth: oral mucosae normal Eyes General: appearance normal, both eyes and all related structures Neck Neck: normal visual inspection Chest Chest: normal inspection of the chest Resp Effort & Inspection: normal respiratory effort and able to speak in complete sentences Auscultation: clear to auscultation bilaterally Cardio Rate: regular rate Rhythm: regular rhythm GI Inspection: normal to inspection Palpation: soft, not firm, no guarding, not rigid and nontender Back/Spine/Pelvis Thoracic/Lumbar Spine: thoracic and lumbar spine normal to inspection, No thoracic spinal tenderness and No lumbar spinal tenderness Pelvis: no pain with anterior-posterior compression Sacrum: no ecchymosis, no erythema, no swelling and no tenderness Skin General skin exam: no rashes or lesions noted Neuro General: patient alert, patient awake and patient oriented x3 Motor: muscle tone normal throughout and strength 5/5 throughout DTR's: Rt Patellar: 1+, Lt Patellar: 1+, Rt Ankle: 1+ and Lt Ankle: 1+ Plantar Reflexes: Equivocal: bilateral (negative babinski b/l ) Extrem General: normal to inspection and full ROM Other: B/L DP/PT pulses intact. Psych Appearance: grossly normal Affect: normal affect Course Vital Signs Vital signs: Vital Signs Temperature 98.1 F 10/30/21 14:48 Pulse 127 H 10/30/21 14:48 Respiratory Rate 16 10/30/21 14:48 Blood Pressure 162/93 H 10/30/21 14:48 Pulse Oximetry 99 10/30/21 14:48 Temperature 98.1 F 10/30/21 14:48 Temperature Source Skin 10/30/21 14:48 Pulse 127 H 10/30/21 14:48 Respiratory Rate 16 10/30/21 14:48 Respiratory Effort 10/30/21 14:48 Blood Pressure 162/93 H 10/30/21 14:48 Blood Pressure Position Sitting 10/30/21 14:48 Pulse Oximetry 99 10/30/21 14:48 Oxygen Delivery Method Room Air 10/30/21 14:48 Oxygen Flow Rate 0 10/30/21 14:48 Pain Level 4 10/30/21 15:00
[2021-10-30] MEDS: diazePAM 5 MG TAB PO (17:14)
[2021-10-30] MEDS: Ketorolac 60 MG/2 ML VIAL IM (17:14)
[2021-10-30] MEDS: oxyCODONE 5 MG TAB PO (17:15)
[2021-10-30] MEDS: predniSONE 20 MG TAB PO (17:15)
[2021-10-30] MEDS: predniSONE 20 MG TAB 120 MG PO (17:34)
== END 2021-10-30 17:36 | disposition home or self-care (01) ==
PROVIDERS: Emergency Provider Physician Assistant; PCP Family Medicine
DX: M54.32 Sciatica, left side (principal)
CPT/HCPCS: 96372; 99284; 99283; J1885; J7512

== ENCOUNTER 2021-11-03 09:15 | Emergency (ER) | payer MEDICARE, OTHER, SELFPAY ==
[2021-11-03 09:21] VITALS: BP 174/97; PULSE 93; RESP 16; TEMP 36.6; O2SAT 98
--- NOTE | 2021-11-03 09:36 | W.ED.GENAD ---
Discharge Plan Disposition Patient Disposition: HOME Condition: Improving Discharge Details Clinical Impression: Lumbar disc herniation, Left lumbar radiculopathy, Bowel incontinence Primary Care Provider: Katerine Quintanilla ED Provider: Lashanda Tovar Home Meds and New Rx's Prescriptions: New methocarbamol 500 mg tablet 500 mg PO Q6H PRN (Reason: muscle spasm) Qty: 14 0RF oxycodone 5 mg tablet 5 mg PO Q6H PRN (Reason: pain) Qty: 7 0RF Continued ibuprofen 200 MG capsule 400 mg PO PRN PRN0RF diclofenac sodium 50 MG tablet,delayed release (DR/EC) 50 mg PO BID 0RF Vitamin D3 Complete 1 EACH tablet 1 tab PO BID 0RF prednisone 20 mg tablet 40 mg PO DAILY 0RF Label Comments: TAKE 2 TABLETS BY MOUTH EVERY DAY FOR 5 DAYS THEN TAKE 1 TABLET BY MOUTH EVERY DAY FOR 5 TO 10 DAYS gabapentin 100 mg capsule 300 mg PO TID 0RF Label Comments: TAKE 1 TO 2 CAPSULES BY MOUTH THREE TIMES DAILY methocarbamol 500 mg tablet 500 mg PO Q6H PRN (Reason: muscle spasm) Qty: 14 0RF omeprazole 40 mg capsule,delayed release(DR/EC) 40 mg PO DAILY 0RF sertraline 25 mg tablet 25 mg PO DAILY 0RF Label Comments: TAKE 1 TABLET BY MOUTH EVERY DAY Soliris 300 mg/30 mL Solution 600 mg IV QWEEK 0RF Rx Instructions: administer wks 1-4 of therapy; over 35 min cyclobenzaprine 10 mg tablet 10 mg PO TID PRN (Reason: muscle spasm) Qty: 14 0RF oxycodone 5 mg tablet 5 mg PO .Q6HRS 0RF Label Comments: TAKE 1 TABLET BY MOUTH EVERY 6 HOURS Discharge Instructions Instructions: Lumbar Disc Herniation (ED), Lumbar Radiculopathy (ED) Additional Instructions: Your imaging today did note lumbar spine disc herniation which is most likely the cause of your back and leg pain but did not note any evidence of a surgical emergency involving the nerves in your lower back. Alternate ice and heat to the affected area(s) several times daily for 20 minutes at a time. Alternate tylenol and motrin as needed and directed for pain. You were given additional prescriptions for muscle relaxers and pain medication to take as needed and directed for pain. Call Dr. Dean's office tomorrow to schedule a follow-up appointment for reevaluation. Follow-up with your primary care doctor within the next week for reevaluation and for referral to [facility] neurosurgery if your back pain persists or worsens. Return immediately to the emergency department if you develop any worsening or new concerning symptoms. Referrals: Mary Ellen Dean MD [ [facility]] - Discharge Data Discharge Date/Time-TO BE ENTERED AT DEPARTURE: 11/03/21 16:17 Discharge Physician: Lashanda Tovar Medical Decision Making 0945 -- 66-year-old female with history of myasthenia gravis diagnosed recently with sciatica seen in the ED 2 times before today for this current complaint presents with persistent left-sided lower back pain with radiation to her left leg ~ 1 month, now with bowel incontinence since last night. Meds. Blood pressure hypertensive, remainder vitals within normal limits. She appears uncomfortable at times but otherwise nontoxic. She has left-sided lumbar and upper buttock tenderness. She is neurovascularly intact and has no focal deficits. She has fairly normal rectal tone. Will obtain a bladder scan. Due to her complaint of bowel incontinence, consider cauda equina syndrome. We are able to obtain an MRI at [address] We will place an IV, give a dose of Toradol, Dilaudid, Valium and will reassess. 1155 -- pt reassessed and she feels much better. She is declining any pain medication at this time. MRI pending. 1250 --imaging reviewed and notes dilated urinary bladder, L4-L5 left-sided disc herniation and L5-S1 central disc herniation. Case discussed and imaging reviewed with Dr. Dean who agrees with plan for contacting [facility] neurosurgery for recommendations. Patient reassessed and she states her pain is stable at this time. Postvoid residual 0mL. 1500 --discussed with [facility] neurosurgery who reviewed imaging and notes that the canal is patent and the disc herniations appear mild and no indication for surgical intervention as this time. Her bowel incontinence could be secondary to a pelvic pathology such as the pudendal nerve and recommend follow-up with neurology for an EMG or NCS. Case also discussed with Dr. Dean who will follow up with patient in the office. No other acute recommendations. Patient placed on Dr. Dean's list for follow-up. Patient given additional methocarbamol and oxycodone. She was also advised to call her primary care doctor for follow-up for reevaluation and for referral to [facility] neurosurgery if her back and leg pain persists. Usual and customary return precautions given prior to discharge. Medical Records Medical records reviewed: Yes I reviewed the patient's medical records. Lab Data Lab results reviewed: Yes I reviewed the patient's lab results. Labs: ?MR LUMBAR SPINE WO/W CLINICAL HISTORY:? L sided low back/leg pain/bowel incontinence. TECHNIQUE:? Multiplanar multisequence MRI was performed. COMPARISON:? MR MRI - LUMBAR SPINE WO CONTRAST from 10/17/2013 FINDINGS: MR examination of the lumbosacral spine was performed according to the usual protocol with additional pre and post contrast T1 fat sat imaging. Urinary bladder appears markedly distended. Kidneys are unremarkable in appearance with no evidence of hydronephrosis. There is reportedly history of prior lumbar spine surgery and there is presumed prior laminectomy at L4-5.? Prior laminectomy and/or spondylolysis may be present on the right at L4-5.? There are [place] discal vertebral signal changes at L 4 5 and L5-S1 consistent with disc degeneration. There are no significant findings from T11-12 level through the L2-3 level.? No central canal spinal stenosis, neural foraminal stenosis, or disc herniation.? Normal appearance of the conus medullaris. At L3-4, there is a mild disc bulge.? There is no evidence of disc herniation, central canal spinal stenosis, or neural foraminal stenosis. At L4-5, there is a left paracentral/left lateral disc herniation which appears to impinge the left L5 nerve root and may minimally narrow the left L4-5 neural foramen.? The patient had a central disc herniation at L4-5 on prior MRI of September 2013, the current disc herniation is new since that time. At L5-S1 there is a new central disc herniation which was not present on the prior examination.? Possible neural impingement, bilateral S1 nerve roots may be impinged.? Neural foramina appear fairly well maintained at this level. No enhancing lesion is identified on post contrast examinations. IMPRESSION: Disc herniations at L4-5 on the left and L5-S1 centrally as described above.? Prior lumbar laminectomy noted at L4-5. HPI General Mode of arrival: ambulatory. Date/Time Provider Initiated Documentation: 11/03/21 09:27. Limitations to Documentation: no limitations. Information obtained by: patient. HPI Narrative: Patient is a 66-year-old female with a history of myasthenia gravis and chronic back pain with previous history of sciatica seen in the ED 2 times in the last week for back pain presents today with persistent left-sided lower back pain with radiation to her left leg for about one month, worse over the last week, now with an episode of bowel incontinence last night. Patient was seen here last week and diagnosed with sciatica and placed on Flexeril. She was seen by her PCP after her initial ED visit and placed on steroids. She was seen here 4 days ago and an increased dose of her steroids for a few days in addition to methocarbamol and oxycodone. She states she has had times where the pain has been improved but times where is worse and this occurs at rest and with movement. She states last night she was sitting and felt stool coming out of her bottom. She states it is not a matter of her inability to make it to the bathroom in time but the stools just started coming out. She denies any urinary incontinence. She denies any known saddle anesthesia. She states she has had tingling in her left leg mostly in her toes and the ball of the foot. She denies any fever, nausea, vomiting, abdominal pain, dysuria or hematuria. Related Data Home Medications Medication Instructions Recorded Confirmed diclofenac sodium 50 mg 50 mg PO BID 11/11/14 11/03/21 tablet,delayed release ibuprofen 200 mg capsule 400 mg PO PRN PRN 11/11/14 11/03/21 multivit with 1 tab PO BID 11/11/14 11/03/21 [id number] 18 mg iron-800 mcg-150 mg tablet (Vitamin D3 Complete) cyclobenzaprine 10 mg tablet 10 mg PO TID PRN #14 tab 10/24/21 11/03/21 eculizumab 300 mg/30 mL 600 mg IV QWEEK 10/24/21 10/30/21 intravenous solution (Soliris) omeprazole 40 mg capsule,delayed 40 mg PO DAILY 10/24/21 11/03/21 release sertraline 25 mg tablet 25 mg PO DAILY 10/24/21 11/03/21 gabapentin 100 mg capsule 300 mg PO TID 10/30/21 11/03/21 methocarbamol 500 mg tablet 500 mg PO Q6H PRN #14 tab 10/30/21 11/03/21 prednisone 20 mg tablet 40 mg PO DAILY 10/30/21 11/03/21 methocarbamol 500 mg tablet 500 mg PO Q6H PRN #14 tab 11/03/21 oxycodone 5 mg tablet 5 mg PO .Q6HRS 11/03/21 11/03/21 oxycodone 5 mg tablet 5 mg PO Q6H PRN #7 tab 11/03/21 Previous Rx's Medication Instructions Recorded cyclobenzaprine 10 mg tablet 10 mg PO TID PRN #14 tab 10/24/21 methocarbamol 500 mg tablet 500 mg PO Q6H PRN #14 tab 10/30/21 methocarbamol 500 mg tablet 500 mg PO Q6H PRN #14 tab 11/03/21 oxycodone 5 mg tablet 5 mg PO Q6H PRN #7 tab 11/03/21 Allergies Allergy/AdvReac Type Severity Reaction Status Date / Time Penicillins Allergy Intermediate Itching, Unverified 11/03/21 09:25 rash General Stated Complaint: Nk/Back Pain CARMENCITA: 3 Review of Systems All systems reviewed & are unremarkable except as noted in HPI and below Constitutional Constitutional: Reports as per HPI, Denies chills and Denies fever(s) Eyes Eyes: Denies blurry vision ENT Ears, Nose, Mouth, and Throat: Denies dizziness, Denies sore throat and Denies throat swelling Cardiovascular Cardiovascular: Denies chest pain and Denies dyspnea Respiratory Respiratory: Denies cough and Denies dyspnea Gastrointestinal Gastrointestinal: Denies abdominal pain, Denies diarrhea and Denies vomiting Genitourinary Genitourinary: Denies hematuria and Denies dysuria Musculoskeletal Musculoskeletal: Reports back pain and Denies numbness Comments: L leg pain Integumentary/Breasts Skin/Breast: Denies lesions and Denies rash Neurologic Neurologic: Denies dizziness, Denies localized weakness and Denies numbness Allergic/Immunologic Allergic/Immunologic: Denies throat swelling PFSH All Active Problems (Updated 11/03/21 @ 15:58 by Lashanda Tovar DO) Lumbosacral spondylosis without myelopathy (Acute) Back pain (Acute) Sciatica (Acute) Sciatica (Acute) Lumbar disc herniation (Acute) Left lumbar radiculopathy (Acute) Bowel incontinence (Acute) Medical History (Updated 11/03/21 @ 15:58 by Lashanda Tovar DO) Myasthenia gravis Social History Smoking/Tobacco Use Status: Former Tobacco Use Smoking risk assessment performed?: Yes Alcohol Intake: never Drug use: Never Substance use type: does not use Do you feel safe at home: Yes Do you feel safe in your relationship?: Yes Exam Const General: cooperative, healthy appearing and no acute distress HENMT Head: normal to inspection Mouth: oral mucosae normal Eyes General: appearance normal, both eyes and all related structures Neck Neck: normal visual inspection Resp Effort & Inspection: normal respiratory effort and able to speak in complete sentences Cardio Rate: regular rate Skin General skin exam: no rashes or lesions noted Neuro General: patient alert, patient awake and patient oriented x3 Motor: muscle tone normal throughout and strength 5/5 throughout DTR's: Rt Patellar: 1+, Lt Patellar: 1+, Rt Ankle: 1+ and Lt Ankle: 1+ Plantar Reflexes: Equivocal: bilateral (negative babinski b/l ) Extrem General: normal to inspection and full ROM Other: b/l PT/DP pulses intact. Psych Appearance: grossly normal Affect: normal affect Course Vital Signs Vital signs: Vital Signs Temperature 97.9 F 11/03/21 09:21 Pulse 93 H 11/03/21 09:21 Respiratory Rate 16 11/03/21 09:21 Blood Pressure 174/97 H 11/03/21 09:21 Pulse Oximetry 98 11/03/21 09:21 Temperature 97.9 F 11/03/21 09:21 Temperature Source Skin 11/03/21 09:21 Pulse 93 H 11/03/21 09:21 Respiratory Rate 16 11/03/21 09:21 Respiratory Effort 11/03/21 09:21 Blood Pressure 174/97 H 11/03/21 09:21 Blood Pressure Position Supine 11/03/21 09:21 Pulse Oximetry 98 11/03/21 09:21 Oxygen Delivery Method Room Air 11/03/21 09:21 Oxygen Flow Rate 0 11/03/21 09:21 Pain Level 6 11/03/21 09:21
--- NOTE | 2021-11-03 10:03 | DI.MRI_ITS ---
Exam(s) MR LUMBAR SPINE WO/W EXAM: MR LUMBAR SPINE WO/W CLINICAL HISTORY: L sided low back/leg pain/bowel incontinence. TECHNIQUE: Multiplanar multisequence MRI was performed. COMPARISON: MR MRI - LUMBAR SPINE WO CONTRAST from 10/17/2013 FINDINGS: MR examination of the lumbosacral spine was performed according to the usual protocol with additional pre and post contrast T1 fat sat imaging. Urinary bladder appears markedly distended. Kidneys are unremarkable in appearance with no evidence of hydronephrosis. There is reportedly history of prior lumbar spine surgery and there is presumed prior laminectomy at L4-5. Prior laminectomy and/or spondylolysis may be present on the right at L4-5. There are [place] di scal vertebral signal changes at L 4 5 and L5-S1 consistent with disc degeneration. There are no significant findings from T11-12 level through the L2-3 level. No central canal spinal stenosis, neural foraminal stenosis, or disc herniation. Normal appearance of the conus medullaris. At L3-4, there is a mild disc bulge. There is no evidence of disc herniation, central canal spinal s tenosis, or neural foraminal stenosis. At L4-5, there is a left paracentral/left lateral disc herniation which appears to impinge the left L 5 nerve root and may minimally narrow the left L4-5 neural foramen. The patient had a central disc h erniation at L4-5 on prior MRI of September 2013, the current disc herniation is new since that time. At L5-S1 there is a new central disc herniation which was not present on the prior examination. Poss ible neural impingement, bilateral S1 nerve roots may be impinged. Neural foramina appear fairly wel l maintained at this level. No enhancing lesion is identified on post contrast examinations. IMPRESSION: Disc herniations at L4-5 on the left and L5-S1 centrally as described above. Prior lumbar laminectom y noted at L4-5. DATA REPOSITORY:
[2021-11-03] MEDS: Ketorolac 30 MG/ML VIAL IVP (10:18)
[2021-11-03] MEDS: HYDROmorphone 2 MG/ML VIAL 1 MG IVP ×2 (10:18→14:51)
[2021-11-03] MEDS: diazePAM 5 MG TAB PO (10:18)
[2021-11-03] MEDS: Normal Saline Flush 10 ML SYR IVP (10:58)
[2021-11-03] MEDS: Gadoterate meglumine 20 ML VIAL 12 ML IVP (10:59)
[2021-11-03 15:25] VITALS: BP 159/91; PULSE 107; RESP 18; O2SAT 95
--- NOTE | 2021-11-03 16:02 | NUR.NOTE ---
Nursing Note: PT INFO FAXED TO NEUROLOGY TO BE SEEN FOR BACK PAIN AND BOWEL INCONTINENCE IN A WEEK. LOPEZ, ED
[2021-11-03 16:16] VITALS: BP 149/94; PULSE 94; RESP 18; TEMP 36.9; O2SAT 96
== END 2021-11-03 16:17 | disposition home or self-care (01) ==
PROVIDERS: Emergency Provider Physician Assistant; PCP Family Medicine
DX: M51.16 Intervertebral disc disorders with radiculopathy, lumbar region (principal); R15.9 Full incontinence of feces
CPT/HCPCS: 72158; 96374; 96375; 96376; 99284; J1885

== ENCOUNTER 2021-11-22 02:17 | Outpatient (RCR) | payer MEDICARE, OTHER, SELFPAY ==
[2021-10-25 00:10] VITALS: BP 149/94; PULSE 83; RESP 17; TEMP 36.7
[2021-10-25] MEDS: Normal Saline Flush 10 ML SYR IVP (12:16)
[2021-11-08] MEDS: Normal Saline Flush 10 ML SYR IVP (10:36)
[2021-11-22] MEDS: Normal Saline Flush 10 ML SYR IVP (10:38)
== END 2021-11-24 23:59 | disposition home or self-care (01) ==
LOC: INF 02:17
PROVIDERS: PCP Family Medicine; Visit Provider Internal Medicine
DX: G70.01 Myasthenia gravis with (acute) exacerbation (principal)
CPT/HCPCS: 96365; J1300

== ENCOUNTER 2021-12-20 04:40 | Outpatient (RCR) | payer MEDICARE, OTHER, SELFPAY ==
[2021-11-25 00:14] VITALS: BP 149/94; PULSE 83; RESP 17; TEMP 36.7
[2021-12-06 10:33] LABS: HCT 40.3 % (36.0-46.0); HGB 13.1 g/dL (11.2-15.7); MCHC 32.5 % (32.0-36.0); MCV 95.5 fL (80-95); MPV 9.4 fL (8.0-11.0); Platelet Count 203 10^3/uL (130-400); RBC 4.22 10^6/uL (3.93-5.22); RDW 12.8 % (11.7-14.6); RDW-SD 45.1 fL; WBC 4.56 10^3/uL (4.4-10.8)
[2021-12-06 10:36] LABS: Anion Gap 6.8 mmol/L (3-11); BUN 10 mg/dL (7-18); CO2 28.2 mmol/L (21.0-32.0); CREATININE 0.7 mg/dL (0.55-1.02); Calcium 9.3 mg/dL (8.5-10.1); Chloride 101 mmol/L (98-107); Glucose 87 mg/dL (74-106); Potassium 3.9 mmol/L (3.5-5.1); Sodium 136 mmol/L (136-145)
[2021-12-06] MEDS: Normal Saline Flush 10 ML SYR IVP (11:31)
[2021-12-07 10:16] LABS: HIV-1/2 Ag & Ab Screen Negative (Negative)
[2021-12-20] MEDS: Normal Saline Flush 10 ML SYR IVP (10:32)
== END 2021-12-24 23:59 | disposition home or self-care (01) ==
LOC: INF 04:40
PROVIDERS: PCP Family Medicine; Visit Provider Internal Medicine
DX: G70.01 Myasthenia gravis with (acute) exacerbation (principal); I10 Essential (primary) hypertension
CPT/HCPCS: 36415; 80048; 85027; 87389; 96365; J1300

== ENCOUNTER 2022-01-17 02:22 | Outpatient (RCR) | payer MEDICARE, OTHER, SELFPAY ==
[2021-12-25 00:06] VITALS: BP 149/94; PULSE 83; RESP 17; TEMP 36.7
[2022-01-03] MEDS: Normal Saline Flush 10 ML SYR IVP (11:36)
[2022-01-17] MEDS: Normal Saline Flush 10 ML SYR IVP (10:57)
== END 2022-01-24 23:59 | disposition home or self-care (01) ==
LOC: INF 02:22
PROVIDERS: PCP Family Medicine; Visit Provider Internal Medicine
DX: G70.01 Myasthenia gravis with (acute) exacerbation (principal)
CPT/HCPCS: 96365; J1300

== ENCOUNTER 2022-02-14 00:35 | Outpatient (RCR) | payer MEDICARE, OTHER, SELFPAY ==
[2022-01-25 00:13] VITALS: BP 149/94; PULSE 83; RESP 17; TEMP 36.7
[2022-01-31] MEDS: Normal Saline Flush 10 ML SYR IVP (10:52)
[2022-02-14] MEDS: Normal Saline Flush 10 ML SYR IVP (09:07)
== END 2022-02-23 23:59 | disposition home or self-care (01) ==
LOC: INF 00:35
PROVIDERS: PCP Family Medicine; Visit Provider Internal Medicine
DX: G70.01 Myasthenia gravis with (acute) exacerbation (principal)
CPT/HCPCS: 96365; J1300

== ENCOUNTER 2022-03-14 01:10 | Outpatient (RCR) | payer MEDICARE, OTHER, SELFPAY ==
[2022-02-24 00:07] VITALS: BP 149/94; PULSE 83; RESP 17; TEMP 36.7
[2022-02-28] MEDS: Normal Saline Flush 10 ML SYR IVP (10:02)
[2022-03-14] MEDS: Normal Saline Flush 10 ML SYR IVP (13:24)
== END 2022-03-26 23:59 | disposition home or self-care (01) ==
LOC: INF 01:10
PROVIDERS: PCP Family Medicine; Visit Provider Internal Medicine
DX: G70.00 Myasthenia gravis without (acute) exacerbation (principal)
CPT/HCPCS: 96365; J1300

== ENCOUNTER 2022-04-17 03:22 | Outpatient (RCR) | payer MEDICARE, OTHER, SELFPAY ==
[2022-03-27 00:04] VITALS: BP 149/94; PULSE 83; RESP 17; TEMP 36.7
[2022-03-28] MEDS: Normal Saline Flush 10 ML SYR IVP (10:18)
[2022-04-17] MEDS: Normal Saline Flush 10 ML SYR IVP (09:04)
== END 2022-04-26 23:59 | disposition home or self-care (01) ==
LOC: INF 03:22
PROVIDERS: PCP Family Medicine; Visit Provider Internal Medicine
DX: G70.00 Myasthenia gravis without (acute) exacerbation (principal)
CPT/HCPCS: 96365; J1300

== ENCOUNTER 2022-05-16 01:18 | Outpatient (RCR) | payer MEDICARE, OTHER, SELFPAY ==
[2022-04-27 00:03] VITALS: BP 149/94; PULSE 83; RESP 17; TEMP 36.7
[2022-05-02] MEDS: Normal Saline Flush 10 ML SYR IVP (13:55)
[2022-05-16] MEDS: Normal Saline Flush 10 ML SYR IVP (10:45)
== END 2022-05-26 23:59 | disposition home or self-care (01) ==
LOC: INF 01:18
PROVIDERS: PCP Family Medicine; Visit Provider Internal Medicine
DX: G70.01 Myasthenia gravis with (acute) exacerbation (principal)
CPT/HCPCS: 96365; J1300

== ENCOUNTER 2022-06-13 03:20 | Outpatient (RCR) | payer MEDICARE, SELFPAY ==
[2022-05-27 00:04] VITALS: BP 149/94; PULSE 83; RESP 17; TEMP 36.7
[2022-05-30] MEDS: Normal Saline Flush 10 ML SYR IVP (13:41)
[2022-06-13] MEDS: Normal Saline Flush 10 ML SYR IVP (10:33)
== END 2022-06-26 23:59 | disposition home or self-care (01) ==
LOC: INF 03:20
PROVIDERS: PCP Family Medicine; Visit Provider Internal Medicine
DX: G70.00 Myasthenia gravis without (acute) exacerbation (principal)
CPT/HCPCS: 96365; J1300

== ENCOUNTER 2022-07-12 02:40 | Outpatient (RCR) | payer MEDICARE, SELFPAY ==
[2022-06-27 00:15] VITALS: BP 149/94; PULSE 83; RESP 17; TEMP 36.7
[2022-06-27] MEDS: Normal Saline Flush 10 ML SYR IVP (10:45)
[2022-07-12] MEDS: Normal Saline Flush 10 ML SYR IVP (08:34)
== END 2022-07-26 23:59 | disposition home or self-care (01) ==
LOC: INF 02:40
PROVIDERS: PCP Family Medicine; Visit Provider Family Medicine
DX: G70.00 Myasthenia gravis without (acute) exacerbation (principal)
CPT/HCPCS: 96365; J1300

== ENCOUNTER 2022-08-22 03:19 | Outpatient (RCR) | payer MEDICARE, SELFPAY ==
[2022-07-27 00:17] VITALS: BP 149/94; PULSE 83; RESP 17; TEMP 36.7
[2022-07-28] MEDS: Normal Saline Flush 10 ML SYR IVP (07:37)
[2022-08-08] MEDS: Normal Saline Flush 10 ML SYR IVP (10:34)
[2022-08-22] MEDS: Normal Saline Flush 10 ML SYR IVP (10:40)
== END 2022-08-26 23:59 | disposition home or self-care (01) ==
LOC: INF 03:19
PROVIDERS: PCP Family Medicine; Visit Provider Family Medicine
DX: G70.00 Myasthenia gravis without (acute) exacerbation (principal)
CPT/HCPCS: 96365; J1300

== ENCOUNTER 2022-09-07 12:06 | Outpatient (REF) | payer MEDICARE, SELFPAY ==
[2022-09-07 15:37] LABS: C Diff PCR Negative (Negative)
[2022-09-07 23:26] LABS: Campylobacter PCR Negative (Negative); Salmonella PCR Negative (Negative); Shiga Toxin PCR Negative (Negative); Shigella/Enteroinvasive Ecoli Negative (Negative)
[2022-09-09 19:23] LABS: Calprotectin <50.0 mcg/g
== END 2022-09-07 12:07 | disposition home or self-care (01) ==
LOC: NCHCN 12:06
PROVIDERS: PCP Family Medicine; Visit Provider Family Medicine
DX: R19.7 Diarrhea, unspecified (principal)
CPT/HCPCS: 87329; 87493; 87505; 83993

== ENCOUNTER 2022-09-19 10:00 | Outpatient (RCR) | payer MEDICARE, SELFPAY ==
[2022-08-27 00:09] VITALS: BP 149/94; PULSE 83; RESP 17; TEMP 36.7
[2022-09-05] MEDS: Normal Saline Flush 10 ML SYR IVP (11:18)
[2022-09-19 10:20] LABS: HCT 36.2 % (36.0-46.0); HGB 12.1 g/dL (11.2-15.7); MCH 30.4 pg (27.0-33.0); MCHC 33.4 % (32.0-36.0); MCV 91 fL (80-95); MPV 9.1 fL (8.0-11.0); Platelet Count 258 10^3/uL (130-400); RBC 3.98 10^6/uL (3.93-5.22); RDW 14.6 % (11.7-14.6); RDW-SD 49.1 fL; WBC 5.44 10^3/uL (4.4-10.8)
[2022-09-19 10:47] LABS: Anion Gap 6.9 mmol/L (3-11); BUN 10 mg/dL (7-18); CO2 29.1 mmol/L (21.0-32.0); CREATININE 0.7 mg/dL (0.55-1.02); Calcium 10.1 mg/dL (8.5-10.1); Chloride 100 mmol/L (98-107); Estimated GFR 94.73 (mL/min/1.73m2); Glucose 102 mg/dL (74-106); Potassium 4.4 mmol/L (3.5-5.1); Sodium 136 mmol/L (136-145); TSH (W/Ref FT4) 0.61 uIU/mL (0.36-3.74)
== END 2022-09-26 23:59 | disposition home or self-care (01) ==
LOC: INF 10:00
PROVIDERS: PCP Family Medicine; Visit Provider Family Medicine
DX: R19.7 Diarrhea, unspecified (principal); I10 Essential (primary) hypertension; Z78.0 Asymptomatic menopausal state; G70.00 Myasthenia gravis without (acute) exacerbation
CPT/HCPCS: 80048; 85027; 96365; 84443; J1300

== ENCOUNTER 2022-09-19 17:20 | Outpatient (REF) | payer MEDICARE, SELFPAY | END 2022-09-19 17:21 | disposition home or self-care (01) | LOC: NCHCN 17:20 | PROVIDERS: PCP Family Medicine; Visit Provider Family Medicine | DX: R19.7 Diarrhea, unspecified (principal); I10 Essential (primary) hypertension | CPT/HCPCS: 87329; 87493; 87505; 83993 ==

== ENCOUNTER 2022-10-20 01:21 | Outpatient (RCR) | payer MEDICARE, SELFPAY ==
[2022-09-27 00:06] VITALS: BP 149/94; PULSE 83; RESP 17; TEMP 36.7
[2022-10-06] MEDS: Normal Saline Flush 10 ML SYR IVP (10:40)
[2022-10-20] MEDS: Normal Saline Flush 10 ML SYR IVP (11:08)
== END 2022-10-24 23:59 | disposition home or self-care (01) ==
LOC: INF 01:21
PROVIDERS: PCP Family Medicine; Visit Provider Family Medicine
DX: G70.00 Myasthenia gravis without (acute) exacerbation (principal)
CPT/HCPCS: 96365; J1300

== ENCOUNTER 2022-11-03 01:25 | Outpatient (RCR) | payer MEDICARE, SELFPAY ==
[2022-10-25 00:13] VITALS: BP 149/94; PULSE 83; RESP 17; TEMP 36.7
[2022-11-03] MEDS: Normal Saline Flush 10 ML SYR IVP (10:26)
== END 2022-11-24 23:59 | disposition home or self-care (01) ==
LOC: INF 01:25
PROVIDERS: PCP Family Medicine; Visit Provider Family Medicine
DX: G70.00 Myasthenia gravis without (acute) exacerbation (principal)
CPT/HCPCS: 96365; J1300

== ENCOUNTER 2022-12-08 00:45 | Outpatient (CLI) | payer MEDICARE, SELFPAY ==
--- NOTE | 2022-12-08 | DI.DEXA_ITS ---
Exam(s) XR DEXA BONE DENSITY W/WO HAYDEE EXAM: XR DEXA BONE DENSITY W/WO HAYDEE CLINICAL HISTORY: POSTMENOPAUSAL Z78.0 TECHNIQUE: Quora C densitometer analysis of left hip, lumbar spine and left forearm. Lat era survey image of the thoracic and lumbar spine. COMPARISON: Two thousand seven FINDINGS: Lateral view of the thoracic and lumbar spine shows no evidence of compression fractures. Bone mineral density measurements of the lumbar spine correspond to a total T-score of -0.7, in the normal range. This represents a 12 percent decrease from 2007. Bone mineral density measurements of the left hip correspond to a total T-score of -1.9. The femora l neck T-score is -1.6, in the osteopenic range. This represents a 24.2 percent decrease compared w ith 2007.. The left forearm bone mineral density measurements correspond to a T-score of the distal 3rd of -1.2 , in the osteopenic range. The forearm was not analyzed on the prior exam.. IMPRESSION: Normal bone mineral density of the lumbar spine and. Osteopenia of the left hip and forearm.
== END 2022-12-08 01:05 ==
LOC: DI 00:45
PROVIDERS: PCP Family Medicine; Visit Provider Family Medicine
DX: Z78.0 Asymptomatic menopausal state (principal); M85.851 Other specified disorders of bone density and structure, right thigh
CPT/HCPCS: 77080

== ENCOUNTER 2023-01-09 02:48 | Outpatient (CLI) | payer MEDICARE, SELFPAY ==
[2023-01-11 09:34] LABS: IgA 126 mg/dL (85-499); IgG 824 mg/dL (610-1616)
[2023-01-11 14:28] LABS: Tissue Transglutaminase IgA <1.2 U/mL (<4.0)
== END 2023-01-09 02:49 | disposition home or self-care (01) ==
PROVIDERS: PCP Family Medicine; Visit Provider Physician Assistant Medical
DX: R19.4 Change in bowel habit (principal)
CPT/HCPCS: 36415; 82784

== ENCOUNTER 2023-01-10 10:34 | Outpatient (REF) | payer MEDICARE, SELFPAY ==
[2023-01-12 19:24] LABS: Calprotectin <50.0 mcg/g
== END 2023-01-10 10:35 | disposition home or self-care (01) ==
LOC: LBN 10:34
PROVIDERS: PCP Family Medicine; Visit Provider Physician Assistant Medical
DX: R19.4 Change in bowel habit (principal)
CPT/HCPCS: 83993

== ENCOUNTER → 2024-04-03 01:11 | Outpatient (CLI) | payer MEDICARE, SELFPAY ==
--- NOTE | 2024-04-03 | DI.MRI_ITS ---
Exam(s) MR LUMBAR SPINE WO EXAM: MR LUMBAR SPINE WO CLINICAL HISTORY: LT SIDE SCIATICA, M54.32, PROGRESSIVE/RECURRENT PAIN LT SIDE, PARESTHESIAS,. TECHNIQUE: Multiplanar multisequence MRI of the Lumbar spine was performed. COMPARISON: MR MR LUMBAR SPINE WO/W from 11/03/2021 FINDINGS: Conus medullaris is at normal level. There is no evidence of conus mass nor subjacent clumping of in trathecal nerve roots to suggest arachnoiditis. The distal thecal sac appears unremarkable.There is no evidence of Tarlov intrasacral cysts nor other significant findings within the sacral canal Bones:There are no fractures nor ominous osseous lesions in the lumbar vertebral bodies and visualize d sacrum. With respect to the individual levels... T12-L1: Unremarkable L1-2: Normal disc height and signal. No disc herniation nor central canal stenosis.No foraminal steno sis L2-3: Normal disc height. No disc herniation nor central canal stenosis.No foraminal stenosis.No face t arthropathy. L3-4: Normal disc height. Small posterior subligamentous central annular tear is again noted but wit hout significant disc protrusion at this level. However, there is mild-moderate central spinal canal stenosis at this level which is due to the annular bulging, short AP dimensions the pedicles, and mi ld degenerative changes in the facet joints, slightly more prominent on the left side. Also ligament um flavum hypertrophy.There is no foraminal stenosis on either side at this level. L4-5: This level again exhibits chronic disc space narrowing and subtle evidence of partial laminecto my. There is some annular bulging again noted which extends into the floor of the exiting right neur al foramen, similar to previous. With respect to the previously present posterolateral disc herniati on, it appears slightly smaller than previous but is still present. There are no new disc herniation s at this level. Central canal dimensions are within normal limits. There is no foraminal stenosis on the left side. However, there is mild-moderate vertical foraminal stenosis on the right side, sim ilar to previous. This is related to slight asymmetric height loss on the right side of the disc spa ce, more so than the left. Some facet arthropathy is again evident at this level, more so on the rig ht side, as was also previously the case. L5-S1: This level also exhibits advanced disc space narrowing on the left side and milder disc space narrowing on the right side, similar to previous. There is relatively symmetrical annular bulging at this level again noted with a central subligamentous disc protrusion again evident. This slightly i ndents the anterior thecal sac. Central canal dimensions are lower normal. The annular protrusion e xtends into the floor of the exiting neural foramina on the left side. There is, however, only mild left-sided foraminal stenosis at this level. No significant right-sided foraminal stenosis. There a re some degenerative changes in the left facet joint. Less so on the right side. Soft tissues: paraspinal soft tissues appear unremarkable. IMPRESSION: 1. The previously described posterolateral left disc herniation at L4-5 has slightly decreased in siz e when compared to MRI scan of 11/03/2021. 2. The previously described L5-S1 central subligamentous disc protrusion appears similar to previous. 3. Central subligamentous annular tear at L3-4 level with out a significant disc herniation at this l evel is again noted. However, there is mild-moderate central spinal canal stenosis at L3-4 noted, sl ightly more so than previous. DATA REPOSITORY:
== END ==
PROVIDERS: PCP Family Medicine; Visit Provider Family Medicine
DX: M54.32 Sciatica, left side (principal); M51.27 Other intervertebral disc displacement, lumbosacral region; M51.26 Other intervertebral disc displacement, lumbar region; M48.061 Spinal stenosis, lumbar region without neurogenic claudication; M51.35 Other intervertebral disc degeneration, thoracolumbar region
CPT/HCPCS: 72148

== ENCOUNTER 2024-06-25 01:10 | Outpatient (RCR) | payer MEDICARE, SELFPAY ==
[2024-06-18] MEDS: Acetaminophen 325 MG TAB 650 MG PO (13:29)
[2024-06-18] MEDS: diphenhydrAMINE 25 MG CAP PO (13:29)
[2024-06-18] MEDS: Normal Saline Flush 10 ML SYR IVP (13:41)
[2024-06-25] MEDS: Acetaminophen 325 MG TAB 650 MG PO (13:10)
[2024-06-25] MEDS: Normal Saline Flush 10 ML SYR IVP (13:10)
[2024-06-25] MEDS: diphenhydrAMINE 25 MG CAP PO (13:10)
== END 2024-06-26 23:59 | disposition home or self-care (01) ==
LOC: INF 01:10
PROVIDERS: PCP Family Medicine; Visit Provider Nurse Practitioner Family
DX: G70.00 Myasthenia gravis without (acute) exacerbation (principal)
CPT/HCPCS: 96365; J9332

== ENCOUNTER 2024-07-11 01:02 | Outpatient (RCR) | payer MEDICARE, SELFPAY ==
[2024-07-01] MEDS: Normal Saline Flush 10 ML SYR IVP (13:06)
[2024-07-01] MEDS: Acetaminophen 325 MG TAB 650 MG PO (13:06)
[2024-07-01] MEDS: diphenhydrAMINE 25 MG CAP PO (13:06)
[2024-07-11] MEDS: Normal Saline Flush 10 ML SYR IVP (10:11)
== END 2024-07-26 23:59 | disposition home or self-care (01) ==
LOC: INF 01:02
PROVIDERS: PCP Family Medicine; Visit Provider Nurse Practitioner Family
DX: G70.00 Myasthenia gravis without (acute) exacerbation (principal)
CPT/HCPCS: 96365; J9332

== ENCOUNTER 2024-08-21 00:17 | Outpatient (RCR) | payer MEDICARE, SELFPAY ==
[2024-08-06] MEDS: Acetaminophen 325 MG TAB 650 MG PO (10:00)
[2024-08-06] MEDS: diphenhydrAMINE 25 MG CAP PO (10:00)
[2024-08-06] MEDS: Normal Saline Flush 10 ML SYR IVP (10:47)
[2024-08-13] MEDS: diphenhydrAMINE 25 MG CAP PO (10:00)
[2024-08-13] MEDS: Acetaminophen 325 MG TAB 650 MG PO (10:01)
[2024-08-13] MEDS: Normal Saline Flush 10 ML SYR IVP (10:01)
[2024-08-13 10:06] VITALS: BP 103/68; PULSE 71; RESP 18; TEMP 36.7; O2SAT 98
[2024-08-21] MEDS: Acetaminophen 325 MG TAB 650 MG PO (10:01)
[2024-08-21] MEDS: diphenhydrAMINE 25 MG CAP PO (10:01)
[2024-08-21] MEDS: Normal Saline Flush 10 ML SYR IVP (10:03)
== END 2024-08-26 23:59 | disposition home or self-care (01) ==
LOC: INF 00:17
PROVIDERS: PCP Family Medicine; Visit Provider Nurse Practitioner Family
DX: G70.00 Myasthenia gravis without (acute) exacerbation (principal)
CPT/HCPCS: 96365; J9332

== ENCOUNTER 2024-08-28 03:00 | Outpatient (RCR) | payer MEDICARE, SELFPAY ==
[2024-08-27 00:06] VITALS: BP 103/68; PULSE 71; RESP 18; TEMP 36.7
[2024-08-28] MEDS: diphenhydrAMINE 25 MG CAP PO (10:06)
[2024-08-28] MEDS: Acetaminophen 325 MG TAB 650 MG PO (10:06)
[2024-08-28] MEDS: Normal Saline Flush 10 ML SYR IVP (10:06)
== END 2024-09-26 23:59 | disposition home or self-care (01) ==
LOC: INF 03:00
PROVIDERS: PCP Family Medicine; Visit Provider Nurse Practitioner Family
DX: G70.00 Myasthenia gravis without (acute) exacerbation (principal)
CPT/HCPCS: 96365; J9332

== ENCOUNTER 2024-09-24 03:50 | Outpatient (RCR) | payer MEDICARE, SELFPAY ==
[2024-09-24] MEDS: diphenhydrAMINE 25 MG CAP PO (09:58)
[2024-09-24] MEDS: Acetaminophen 325 MG TAB 650 MG PO (09:58)
[2024-09-24] MEDS: Normal Saline Flush 10 ML SYR IVP (10:41)
== END 2024-09-26 23:59 | disposition home or self-care (01) ==
LOC: INF 03:50
PROVIDERS: PCP Family Medicine; Visit Provider Nurse Practitioner Family
DX: G70.00 Myasthenia gravis without (acute) exacerbation (principal)
CPT/HCPCS: 96365; J9332

== ENCOUNTER 2024-10-16 01:03 | Outpatient (RCR) | payer MEDICARE, SELFPAY ==
[2024-10-02] MEDS: diphenhydrAMINE 25 MG CAP PO (10:00)
[2024-10-02] MEDS: Acetaminophen 325 MG TAB 650 MG PO (10:00)
[2024-10-02] MEDS: Normal Saline Flush 10 ML SYR IVP (10:12)
[2024-10-09] MEDS: Acetaminophen 325 MG TAB 650 MG PO (09:52)
[2024-10-09] MEDS: diphenhydrAMINE 25 MG CAP PO (09:53)
[2024-10-09] MEDS: Normal Saline Flush 10 ML SYR IVP (10:10)
[2024-10-16] MEDS: diphenhydrAMINE 25 MG CAP PO (10:05)
[2024-10-16] MEDS: Acetaminophen 325 MG TAB 650 MG PO (10:05)
== END 2024-10-24 23:59 | disposition home or self-care (01) ==
LOC: INF 01:03
PROVIDERS: PCP Family Medicine; Visit Provider Nurse Practitioner Family
DX: G70.00 Myasthenia gravis without (acute) exacerbation (principal)
CPT/HCPCS: 96365; J9332

== ENCOUNTER 2024-11-19 02:11 | Outpatient (RCR) | payer MEDICARE, SELFPAY ==
[2024-11-13] MEDS: Normal Saline Flush 10 ML SYR IVP (09:53)
[2024-11-13] MEDS: diphenhydrAMINE 25 MG CAP PO (09:53)
[2024-11-13] MEDS: Acetaminophen 325 MG TAB 650 MG PO (09:53)
[2024-11-19] MEDS: diphenhydrAMINE 25 MG CAP PO (09:56)
[2024-11-19] MEDS: Acetaminophen 325 MG TAB 650 MG PO (09:56)
== END 2024-11-24 23:59 | disposition home or self-care (01) ==
LOC: INF 02:11
PROVIDERS: PCP Family Medicine; Visit Provider Nurse Practitioner Family
DX: G70.00 Myasthenia gravis without (acute) exacerbation (principal)
CPT/HCPCS: 96365; J9332

== ENCOUNTER 2024-12-04 01:39 | Outpatient (RCR) | payer MEDICARE, SELFPAY ==
[2024-11-27] MEDS: diphenhydrAMINE 25 MG CAP PO (09:59)
[2024-11-27] MEDS: Acetaminophen 325 MG TAB 650 MG PO (09:59)
[2024-11-27] MEDS: Normal Saline Flush 5 ML SYR IVP (10:29)
[2024-12-04] MEDS: diphenhydrAMINE 25 MG CAP PO (10:14)
[2024-12-04] MEDS: Acetaminophen 325 MG TAB 650 MG PO (10:14)
[2024-12-04] MEDS: Normal Saline Flush 5 ML SYR IVP (10:15)
== END 2024-12-24 23:59 | disposition home or self-care (01) ==
LOC: INF 01:39
PROVIDERS: PCP Family Medicine; Visit Provider Nurse Practitioner Family
DX: G70.00 Myasthenia gravis without (acute) exacerbation (principal)
CPT/HCPCS: 96365; J9332

== ENCOUNTER 2025-01-07 16:47 | Outpatient (REF) | payer MEDICARE, SELFPAY ==
[2025-01-07 21:24] LABS: HCT 36.2 % (36.0-46.0); HGB 11.9 g/dL (11.2-15.7); MCH 31.2 pg (27.0-33.0); MCHC 32.9 % (32.0-36.0); MCV 95 fL (80-95); MPV 10.4 fL (8.0-11.0); Platelet Count 226 10^3/uL (130-400); RBC 3.82 10^6/uL (3.93-5.22); RDW-SD 45.1 fL; WBC 5.27 10^3/uL (4.4-10.8)
[2025-01-07 21:56] LABS: Ferritin 50 ng/mL (8-252)
[2025-01-07 22:09] LABS: Iron 56 ug/dL (50-170); Total Iron Binding Capacity 309 ug/dL (250-450); Transferrin Sat 18 % (15-50)
== END 2025-01-07 16:48 | disposition home or self-care (01) ==
LOC: NCHCN 16:47
PROVIDERS: PCP Family Medicine; Visit Provider Family Medicine
DX: D64.9 Anemia, unspecified (principal)
CPT/HCPCS: 85027; 82728; 83540; 83550

== ENCOUNTER 2025-01-22 02:54 | Outpatient (RCR) | payer MEDICARE, SELFPAY ==
[2025-01-02] MEDS: Acetaminophen 325 MG TAB 650 MG PO (10:08)
[2025-01-02] MEDS: diphenhydrAMINE 25 MG CAP PO (10:09)
[2025-01-02] MEDS: Normal Saline Flush 5 ML SYR IVP (10:14)
[2025-01-08] MEDS: Normal Saline Flush 10 ML SYR IVP (10:05)
[2025-01-08] MEDS: diphenhydrAMINE 25 MG CAP PO (10:05)
[2025-01-08] MEDS: Acetaminophen 325 MG TAB 650 MG PO (10:05)
[2025-01-15] MEDS: Acetaminophen 325 MG TAB 650 MG PO (09:01)
[2025-01-15] MEDS: Normal Saline Flush 10 ML SYR IVP (09:01)
[2025-01-15] MEDS: diphenhydrAMINE 25 MG CAP PO (09:01)
[2025-01-22] MEDS: Acetaminophen 325 MG TAB 650 MG PO (10:17)
[2025-01-22] MEDS: diphenhydrAMINE 25 MG CAP PO (10:18)
[2025-01-22] MEDS: Normal Saline Flush 10 ML SYR IVP (12:24)
== END 2025-01-24 23:59 | disposition home or self-care (01) ==
LOC: INF 02:54
PROVIDERS: PCP Family Medicine; Visit Provider Nurse Practitioner Family
DX: G70.00 Myasthenia gravis without (acute) exacerbation (principal)
CPT/HCPCS: 96365; J9332

== ENCOUNTER 2025-02-18 01:08 | Outpatient (RCR) | payer MEDICARE, SELFPAY ==
[2025-02-18] MEDS: Normal Saline Flush 10 ML SYR IVP (10:13)
[2025-02-18] MEDS: Acetaminophen 325 MG TAB 650 MG PO (10:13)
[2025-02-18] MEDS: diphenhydrAMINE 25 MG CAP PO (10:13)
== END 2025-02-23 23:59 | disposition home or self-care (01) ==
LOC: INF 01:08
PROVIDERS: PCP Family Medicine; Visit Provider Nurse Practitioner Family
DX: G70.00 Myasthenia gravis without (acute) exacerbation (principal)
CPT/HCPCS: 96365; J9332

== ENCOUNTER 2025-03-11 10:00 | Outpatient (RCR) | payer MEDICARE, SELFPAY ==
[2025-02-25] MEDS: Acetaminophen 325 MG TAB 650 MG PO (09:50)
[2025-02-25] MEDS: Normal Saline Flush 10 ML SYR IVP (09:50)
[2025-02-25] MEDS: diphenhydrAMINE 25 MG CAP PO (09:50)
[2025-03-06] MEDS: Acetaminophen 325 MG TAB 650 MG PO (10:04)
[2025-03-06] MEDS: diphenhydrAMINE 25 MG CAP PO (10:04)
[2025-03-06] MEDS: Normal Saline Flush 10 ML SYR IVP (10:05)
[2025-03-11] MEDS: Acetaminophen 325 MG TAB 650 MG PO (10:08)
[2025-03-11] MEDS: diphenhydrAMINE 25 MG CAP PO (10:08)
[2025-03-11] MEDS: Normal Saline Flush 10 ML SYR IVP (10:10)
== END 2025-03-26 23:59 | disposition home or self-care (01) ==
LOC: INF 10:00
PROVIDERS: PCP Family Medicine; Visit Provider Nurse Practitioner Family
DX: G70.00 Myasthenia gravis without (acute) exacerbation (principal)
CPT/HCPCS: 96365; J9332

== ENCOUNTER 2025-04-23 03:51 | Outpatient (RCR) | payer MEDICARE, SELFPAY ==
[2025-04-22 09:12] VITALS: BP 116/70; PULSE 72; RESP 18; TEMP 36.3; O2SAT 98
[2025-04-22] MEDS: Normal Saline Flush 10 ML SYR IVP (09:15)
[2025-04-22] MEDS: IMMUNE GLOBULIN 40 GM/400 ML BTL IVPB (09:15)
[2025-04-22] MEDS: diphenhydrAMINE 25 MG CAP PO (09:16)
[2025-04-22] MEDS: Acetaminophen 325 MG TAB 650 MG PO (09:16)
[2025-04-22 09:38] VITALS: BP 127/77; PULSE 67; RESP 18; TEMP 36.4; O2SAT 98
[2025-04-22 09:45] LABS: HCT 41.2 % (36.0-46.0); HGB 13.7 g/dL (11.2-15.7); MCH 31.1 pg (27.0-33.0); MCHC 33.3 % (32.0-36.0); MCV 93 fL (80-95); MPV 10.1 fL (8.0-11.0); Platelet Count 237 10^3/uL (130-400); RBC 4.41 10^6/uL (3.93-5.22); RDW 12.7 % (11.7-14.6); RDW-SD 44.0 fL; WBC 5.97 10^3/uL (4.4-10.8)
[2025-04-22 09:53] VITALS: BP 128/77; PULSE 60; RESP 18; TEMP 36.4; O2SAT 98
[2025-04-22 10:07] LABS: BUN 11 mg/dL (7-18); Estimated GFR 97.10 (mL/min/1.73m2)
[2025-04-22 10:26] VITALS: BP 120/74; PULSE 64; RESP 18; TEMP 36.4; O2SAT 98
[2025-04-22 10:55] VITALS: BP 121/69; PULSE 62; RESP 19; TEMP 36.3; O2SAT 100
[2025-04-22 11:30] VITALS: BP 111/70; PULSE 59; RESP 18; TEMP 35.9; O2SAT 98
[2025-04-23 09:02] VITALS: BP 111/75; PULSE 70; RESP 18; TEMP 36.3; O2SAT 100
[2025-04-23] MEDS: diphenhydrAMINE 25 MG CAP PO (09:05)
[2025-04-23] MEDS: Acetaminophen 325 MG TAB 650 MG PO (09:05)
[2025-04-23] MEDS: Normal Saline Flush 10 ML SYR IVP (09:05)
[2025-04-23] MEDS: IMMUNE GLOBULIN 10 GM/100 ML BTL IVPB (09:06)
[2025-04-23 09:32] VITALS: BP 99/65; PULSE 65; RESP 18; TEMP 36.7; O2SAT 99
[2025-04-23 09:51] VITALS: BP 117/69; PULSE 61; RESP 18; TEMP 36.4; O2SAT 97
[2025-04-23] MEDS: IMMUNE GLOBULIN 40 GM/400 ML BTL IVPB (10:08)
[2025-04-23 10:23] VITALS: BP 100/64; PULSE 56; RESP 18; TEMP 36.4; O2SAT 99
[2025-04-23 10:53] VITALS: BP 114/72; PULSE 54; RESP 18; TEMP 36.3; O2SAT 100
[2025-04-23 11:23] VITALS: BP 120/74; PULSE 56; RESP 18; TEMP 36.4; O2SAT 99
== END 2025-04-26 23:59 | disposition home or self-care (01) ==
LOC: INF 03:51
PROVIDERS: Psychiatry & Neurology Neurocritical Care; PCP Family Medicine; Visit Provider Nurse Practitioner Family
DX: G70.01 Myasthenia gravis with (acute) exacerbation (principal)
CPT/HCPCS: 36415; 84520; 85027; 96365; 96366; 82565; J1459

== ENCOUNTER 2025-05-11 17:04 | Outpatient (CLI) | payer MEDICARE, SELFPAY ==
[2025-05-11 11:37] LABS: Abs Immature Grans 0.03 10^3/uL (0.0-0.06); HCT 32.0 % (36.0-46.0); HGB 10.8 g/dL (11.2-15.7); Immature Grans % 0.9 %; MCH 31.5 pg (27.0-33.0); MCHC 33.8 % (32.0-36.0); MCV 93 fL (80-95); MPV 9.9 fL (8.0-11.0); Platelet Count 228 10^3/uL (130-400); RBC 3.43 10^6/uL (3.93-5.22); RDW 14.1 % (11.7-14.6); RDW-SD 47.2 fL; WBC 3.31 10^3/uL (4.4-10.8)
[2025-05-11 12:32] LABS: BUN 11 mg/dL (7-18); Estimated GFR 97.10 (mL/min/1.73m2)
== END 2025-05-11 17:05 | disposition home or self-care (01) ==
LOC: LBO 17:05
PROVIDERS: PCP Family Medicine; Visit Provider Psychiatry & Neurology Neurocritical Care
DX: G70.00 Myasthenia gravis without (acute) exacerbation (principal)
CPT/HCPCS: 36415; 84520; 82565; 85025

== ENCOUNTER 2025-05-19 16:05 | Outpatient (REF) | payer MEDICARE, SELFPAY ==
[2025-05-19 15:03] LABS: Abs Immature Grans 0.01 10^3/uL (0.0-0.06); HCT 31.8 % (36.0-46.0); HGB 10.5 g/dL (11.2-15.7); Immature Grans % 0.4 %; MCH 32.0 pg (27.0-33.0); MCHC 33.0 % (32.0-36.0); MCV 97 fL (80-95); MPV 10.3 fL (8.0-11.0); Platelet Count 241 10^3/uL (130-400); RBC 3.28 10^6/uL (3.93-5.22); RDW 15.6 % (11.7-14.6); RDW-SD 55.4 fL; WBC 2.37 10^3/uL (4.4-10.8)
[2025-05-19 16:12] LABS: RBC Morphology Normal
== END 2025-05-19 16:06 | disposition home or self-care (01) ==
LOC: NCHCN 16:05
PROVIDERS: PCP Family Medicine; Visit Provider Family Medicine
DX: G70.00 Myasthenia gravis without (acute) exacerbation (principal)
CPT/HCPCS: 85025

== ENCOUNTER 2025-05-21 00:41 | Outpatient (RCR) | payer MEDICARE, SELFPAY ==
[2025-05-18 10:31] VITALS: BP 122/71; PULSE 84; RESP 18; TEMP 36.7; O2SAT 98
[2025-05-18] MEDS: Normal Saline Flush 10 ML SYR IVP (10:39)
[2025-05-18] MEDS: Acetaminophen 325 MG TAB 650 MG PO (10:39)
[2025-05-18] MEDS: diphenhydrAMINE 25 MG CAP PO (10:39)
[2025-05-18] MEDS: IMMUNE GLOBULIN 5 GM/50 ML BTL IVPB (10:50)
[2025-05-18 11:04] VITALS: BP 104/61; PULSE 75; RESP 18; TEMP 36.6; O2SAT 97
[2025-05-18] MEDS: IMMUNE GLOBULIN 10 GM/100 ML BTL IVPB (11:18)
[2025-05-18 11:19] VITALS: BP 117/67; PULSE 72; RESP 18; TEMP 36.5; O2SAT 97
[2025-05-18 11:50] VITALS: BP 114/67; PULSE 62; RESP 18; TEMP 36.6; O2SAT 97
[2025-05-18] MEDS: IMMUNE GLOBULIN 20 GM/200 ML BTL IVPB (12:06)
[2025-05-18 12:26] VITALS: BP 147/77; PULSE 66; RESP 18; TEMP 36.4; O2SAT 100
[2025-05-18 13:09] VITALS: BP 115/65; PULSE 60; RESP 19; TEMP 36.5; O2SAT 99
[2025-05-21] MEDS: Normal Saline Flush 10 ML SYR IVP (11:19)
== END 2025-05-26 23:59 | disposition home or self-care (01) ==
LOC: INF 00:41
PROVIDERS: PCP Family Medicine; Visit Provider Family Medicine
DX: G70.01 Myasthenia gravis with (acute) exacerbation (principal)
CPT/HCPCS: 96365; 96366; J1459; Q5151

== ENCOUNTER 2025-06-09 19:25 | Outpatient (REF) | payer MEDICARE, SELFPAY ==
[2025-06-09 21:05] LABS: Abs Immature Grans 0.00 10^3/uL (0.0-0.06); HCT 35.3 % (36.0-46.0); HGB 11.2 g/dL (11.2-15.7); Immature Grans % 0.0 %; MCH 32.2 pg (27.0-33.0); MCHC 31.7 % (32.0-36.0); MCV 101 fL (80-95); MPV 10.3 fL (8.0-11.0); Platelet Count 217 10^3/uL (130-400); RBC 3.48 10^6/uL (3.93-5.22); RDW 15.4 % (11.7-14.6); RDW-SD 57.8 fL; WBC 2.62 10^3/uL (4.4-10.8)
[2025-06-09 22:03] LABS: Macrocytosis 1+
== END 2025-06-09 19:26 | disposition home or self-care (01) ==
LOC: NCHCN 19:25
PROVIDERS: PCP Family Medicine; Visit Provider Family Medicine
DX: D70.8 Other neutropenia (principal)
CPT/HCPCS: 85025

== ENCOUNTER 2025-06-15 03:27 | Outpatient (RCR) | payer MEDICARE, SELFPAY ==
[2025-06-02] VITALS (7 sets, daily range): BP systolic 98–118; BP diastolic 60–70; PULSE 57–70; RESP 17–19; TEMP 35.7–36.8; O2SAT 97–99
[2025-06-02] MEDS: Acetaminophen 325 MG TAB 650 MG PO (10:12)
[2025-06-02] MEDS: diphenhydrAMINE 25 MG CAP PO (10:12)
[2025-06-02] MEDS: Normal Saline Flush 10 ML SYR IVP (10:12)
[2025-06-02] MEDS: IMMUNE GLOBULIN 10 GM/100 ML BTL IVPB (10:30)
[2025-06-02 11:03] LABS: HCT 32.0 % (36.0-46.0); HGB 10.2 g/dL (11.2-15.7); MCH 31.0 pg (27.0-33.0); MCHC 31.9 % (32.0-36.0); MCV 97 fL (80-95); MPV 9.8 fL (8.0-11.0); Platelet Count 217 10^3/uL (130-400); RBC 3.29 10^6/uL (3.93-5.22); RDW 14.8 % (11.7-14.6); RDW-SD 53.4 fL; WBC 3.69 10^3/uL (4.4-10.8)
[2025-06-02 11:18] LABS: BUN 12 mg/dL (7-18)
[2025-06-02] MEDS: IMMUNE GLOBULIN 40 GM/400 ML BTL IVPB (11:40)
[2025-06-02 14:54] LABS: HCT 30.2 % (36.0-46.0); HGB 10.1 g/dL (11.2-15.7); MCH 33.2 pg (27.0-33.0); MCHC 33.4 % (32.0-36.0); MCV 99 fL (80-95); MPV 10.0 fL (8.0-11.0); Platelet Count 217 10^3/uL (130-400); RBC 3.04 10^6/uL (3.93-5.22); RDW 15.0 % (11.7-14.6); RDW-SD 54.4 fL; WBC 2.84 10^3/uL (4.4-10.8)
[2025-06-02 15:20] LABS: BUN 13 mg/dL (7-18)
[2025-06-15 10:03] VITALS: BP 100/62; PULSE 73; RESP 19; TEMP 36.7; O2SAT 96
[2025-06-15] MEDS: diphenhydrAMINE 25 MG CAP PO (10:07)
[2025-06-15] MEDS: Normal Saline Flush 10 ML SYR IVP (10:08)
[2025-06-15] MEDS: Acetaminophen 325 MG TAB 650 MG PO (10:08)
[2025-06-15] MEDS: IMMUNE GLOBULIN 10 GM/100 ML BTL IVPB (10:09)
[2025-06-15 10:25] VITALS: BP 98/60; PULSE 56; RESP 18; TEMP 35.4; O2SAT 96
[2025-06-15 10:40] VITALS: BP 100/62; PULSE 56; RESP 19; TEMP 36.5; O2SAT 96
[2025-06-15] MEDS: IMMUNE GLOBULIN 40 GM/400 ML BTL IVPB (11:06)
[2025-06-15 11:20] VITALS: BP 107/67; PULSE 53; RESP 18; TEMP 36.9; O2SAT 98
[2025-06-15 11:50] VITALS: BP 111/57; PULSE 56; RESP 18; TEMP 36.5; O2SAT 97
[2025-06-15 14:01] LABS: HCT 31.3 % (36.0-46.0); HGB 10.3 g/dL (11.2-15.7); MCH 32.1 pg (27.0-33.0); MCHC 32.9 % (32.0-36.0); MCV 98 fL (80-95); MPV 9.6 fL (8.0-11.0); Platelet Count 190 10^3/uL (130-400); RBC 3.21 10^6/uL (3.93-5.22); RDW 14.6 % (11.7-14.6); RDW-SD 52.8 fL; WBC 2.48 10^3/uL (4.4-10.8)
[2025-06-15 14:11] LABS: BUN 13 mg/dL (7-18)
== END 2025-06-26 23:59 | disposition home or self-care (01) ==
LOC: INF 03:27
PROVIDERS: Psychiatry & Neurology Neurocritical Care; PCP Family Medicine; Visit Provider Nurse Practitioner Family
DX: G70.01 Myasthenia gravis with (acute) exacerbation (principal)
CPT/HCPCS: 36415; 84520; 85027; 96365; 96366; 82565; J1459

== ENCOUNTER 2025-06-25 00:05 | Outpatient (RCR) | payer MEDICARE, SELFPAY ==
[2025-05-28] MEDS: Normal Saline Flush 10 ML SYR IVP (10:34)
[2025-06-04] MEDS: Normal Saline Flush 10 ML SYR IVP (10:45)
[2025-06-11] MEDS: Normal Saline Flush 10 ML SYR IVP (10:22)
[2025-06-25] MEDS: EVACUATED CONTAINER IVPB (10:39)
[2025-06-25] MEDS: NORMAL SALINE IVPB (10:39)
[2025-06-25] MEDS: Normal Saline Flush 10 ML SYR IVP (10:39)
[2025-06-25] MEDS: [UNRECOGNIZED DRUG - OTHER] IVPB (10:39)
== END 2025-06-26 23:59 | disposition home or self-care (01) ==
LOC: INF 00:05
PROVIDERS: PCP Family Medicine; Visit Provider Family Medicine
DX: G70.01 Myasthenia gravis with (acute) exacerbation (principal)
CPT/HCPCS: 36415; 96365; Q5151

== ENCOUNTER 2025-07-20 03:15 | Outpatient (RCR) | payer MEDICARE, SELFPAY ==
[2025-06-29] VITALS (7 sets, daily range): BP systolic 105–138; BP diastolic 66–78; PULSE 61–71; RESP 18; TEMP 36.5–36.9; O2SAT 98–99
[2025-06-29] MEDS: Acetaminophen 325 MG TAB 650 MG PO (10:11)
[2025-06-29] MEDS: diphenhydrAMINE 25 MG CAP PO (10:11)
[2025-06-29] MEDS: IMMUNE GLOBULIN 10 GM/100 ML BTL IVPB (10:19)
[2025-06-29] MEDS: IMMUNE GLOBULIN 40 GM/400 ML BTL IVPB (11:32)
[2025-06-29 14:27] LABS: HCT 31.1 % (36.0-46.0); HGB 10.1 g/dL (11.2-15.7); MCH 32.0 pg (27.0-33.0); MCHC 32.5 % (32.0-36.0); MCV 98 fL (80-95); MPV 9.7 fL (8.0-11.0); Platelet Count 204 10^3/uL (130-400); RBC 3.16 10^6/uL (3.93-5.22); RDW 14.2 % (11.7-14.6); RDW-SD 51.5 fL; WBC 2.20 10^3/uL (4.4-10.8)
[2025-06-29 14:36] LABS: BUN 13 mg/dL (7-18); Estimated GFR 92.98 (mL/min/1.73m2)
[2025-07-20] VITALS (7 sets, daily range): BP systolic 121–158; BP diastolic 72–81; PULSE 61–65; RESP 18; TEMP 35.8–37.1; O2SAT 98–99
[2025-07-20] MEDS: diphenhydrAMINE 25 MG CAP PO (09:48)
[2025-07-20] MEDS: Acetaminophen 325 MG TAB 650 MG PO (09:48)
[2025-07-20] MEDS: Normal Saline Flush 10 ML SYR IVP (09:48)
[2025-07-20] MEDS: Immune Globulin-Privigen 10 GM/100 ML BTL IVPB (10:05)
[2025-07-20] MEDS: Immune Globulin-Privigen 40 GM/400 ML BTL IVPB (11:33)
== END 2025-07-26 23:59 | disposition home or self-care (01) ==
LOC: INF 03:15
PROVIDERS: Psychiatry & Neurology Neurocritical Care; PCP Family Medicine; Visit Provider Nurse Practitioner Family
DX: G70.01 Myasthenia gravis with (acute) exacerbation (principal)
CPT/HCPCS: 36415; 84520; 85027; 96365; 96366; 82565; J1459

== ENCOUNTER 2025-07-22 01:59 | Outpatient (RCR) | payer MEDICARE, SELFPAY ==
[2025-07-09] MEDS: EVACUATED CONTAINER IVPB (10:24)
[2025-07-09] MEDS: NORMAL SALINE IVPB (10:24)
[2025-07-09] MEDS: [UNRECOGNIZED DRUG - OTHER] IVPB (10:24)
[2025-07-09] MEDS: Normal Saline Flush 10 ML SYR IVP (10:25)
[2025-07-22] MEDS: Normal Saline Flush 10 ML SYR IVP (10:27)
[2025-07-22] MEDS: NORMAL SALINE IVPB (10:27)
[2025-07-22] MEDS: [UNRECOGNIZED DRUG - OTHER] IVPB (10:27)
[2025-07-22] MEDS: EVACUATED CONTAINER IVPB (10:27)
== END 2025-07-26 23:59 | disposition home or self-care (01) ==
LOC: INF 01:59
PROVIDERS: PCP Family Medicine; Visit Provider Family Medicine
DX: G70.01 Myasthenia gravis with (acute) exacerbation (principal)
CPT/HCPCS: 96365; Q5151

== ENCOUNTER 2025-08-19 00:25 | Outpatient (RCR) | payer MEDICARE, SELFPAY ==
[2025-08-06] MEDS: [UNRECOGNIZED DRUG - OTHER] IVPB (10:54)
[2025-08-06] MEDS: NORMAL SALINE IVPB (10:54)
[2025-08-06] MEDS: Normal Saline Flush 10 ML SYR IVP (10:54)
[2025-08-06] MEDS: EVACUATED CONTAINER IVPB (10:54)
[2025-08-19 09:52] VITALS: BP 117/84; PULSE 70; RESP 18; TEMP 37; O2SAT 96
[2025-08-19] MEDS: EVACUATED CONTAINER IVPB (10:28)
[2025-08-19] MEDS: Normal Saline Flush 10 ML SYR IVP (10:28)
[2025-08-19] MEDS: NORMAL SALINE IVPB (10:28)
[2025-08-19] MEDS: [UNRECOGNIZED DRUG - OTHER] IVPB (10:28)
== END 2025-08-26 23:59 | disposition home or self-care (01) ==
LOC: INF 00:25
PROVIDERS: PCP Family Medicine; Visit Provider Family Medicine
DX: G70.01 Myasthenia gravis with (acute) exacerbation (principal)
CPT/HCPCS: 96365; Q5151